=== PATIENT | male | born 1975 | race Caucasian/White ===

== ENCOUNTER → 2016-07-21 | Outpatient (CLI) | payer MEDICARE, MEDICAID, OTHER ==
--- NOTE | 2016-07-22 19:34 | US ---
EXAM DATE: 07/21/16 PATIENT'S AGE: 41 Patient: BUTCH MILES Facility: [place], [place] Site . Site : 1975 Study: US Abdomen [id number]/11/2017 4:35:35 PM Ordering Physician: Daly Delgadillo Final Report: HISTORY: 41-year-old with right upper quadrant pain. TECHNIQUE: Grayscale ultrasound examination of the abdomen and retroperitoneum was performed. COMPARISON: None available. FINDINGS: The liver is normal in size, however demonstrates abnormally increased echogenicity with decreased through transmission, consistent with diffuse fatty infiltration. No mass. There is a significantly distention, and the common bile duct measures up to 3 mm. There is no ascites. The gallbladder is fluid-filled with no evidence of stones or wall thickening. The right kidney is normal in size and echogenicity measuring up to 10.5 cm. There is no sonographic evidence for hydronephrosis, mass, or stone. IMPRESSION: 1. Liver parenchyma demonstrates abnormally increased echogenicity, consistent with diffuse fatty infiltration. 2. No sonographic evidence for cholelithiasis or acute cholecystitis. Dictated by Jean Carlos Brenner MD @ Jul 22 2016 8:53AM (Electronic Signature) Report Signed by Proxy. STEPH
== END ==
LOC: MW.US 15:56
PROVIDERS: ATTEND Nurse Practitioner
DX: R10.11 Right upper quadrant pain (principal); K76.89 Other specified diseases of liver
CPT/HCPCS: 76705; 76705-26

== ENCOUNTER 2016-12-27 12:05 | Emergency (ER) | payer MEDICARE, MEDICAID, OTHER ==
--- NOTE | 2016-12-27 12:26 | EDM.PDOC ---
ED HPI GENERAL MEDICAL PROBLEM - General Chief Complaint: Respiratory Problem Stated Complaint: COUGHING UP BLOOD Time Seen by Provider: 12/27/16 12:21 Source of Information: Reports: Patient History Limitations: Reports: No Limitations - History of Present Illness INITIAL COMMENTS - FREE TEXT/NARRATIVE: HISTORY AND PHYSICAL: History of present illness: Patient is a 41-year-old male who presents to the emergency room with complaints of nonproductive spontaneous cough she has noticed blood streaked sputum. Patient denies any chest pain, shortness of breath, near syncope, abdominal pain , nausea, vomiting or diarrhea. Denies any fever or chills. Denies any recent travel. Patient is a daily smoker for the past 20 years, 1/2 pack/day. Review of systems: As per history of present illness and below otherwise all systems reviewed and negative. Past medical history: As per history of present illness and as reviewed below otherwise noncontributory. Surgical history: As per history of present illness and as reviewed below otherwise noncontributory. Social history: No reported history of drug or alcohol abuse. Family history: As per history of present illness and as reviewed below otherwise noncontributory. Physical exam: General: Well-developed and well-nourished 41-year-old male. Able to speak in full sentences without shortness of breath. Alert and oriented. HEENT: Atraumatic, normocephalic, pupils reactive, negative for conjunctival pallor or scleral icterus, mucous membranes moist, throat clear, neck supple, nontender, trachea midline. Lymphadenopathy. Lungs: Clear to auscultation, breath sounds equal bilaterally, chest nontender. No cough noted at this time. Heart: S1S2, regular rate and rhythm Abdomen: Soft, nondistended, nontender. Negative for masses or hepatosplenomegaly. Negative for costovertebral tenderness. Pelvis: Stable nontender. Genitourinary: Deferred. Rectal: Deferred. Extremities: Atraumatic, negative for cords or calf pain. Neurovascular unremarkable. Neuro: Awake, alert, oriented. Cranial nerves II through XII unremarkable. Cerebellum unremarkable. Motor and sensory unremarkable throughout. Exam nonfocal. Chest x-ray does not show any sign of a pneumonia, infiltrates or any acute changes. Due to patient's history of smoking and current complaints and will treat him for bronchitis. Azithromycin 5 days, Medrol Dosepak, and pro-air inhaler. Educated patient to continue to monitor his symptoms. I would like him to follow-up with primary care provider in the next 1-2 days. Patient voices understanding of plan of care and denies any further questions at this time. Diagnostics: 2 view chest x-ray Therapeutics: Unique Impression: Acute bronchitis Plan: 1. Please take your medications as prescribed. You were given a prescription for azithromycin which is an antibiotic. Medrol Dosepak which is a steroid to help with inflammation. And a pro-air inhaler that will help open up the airway as well. 2. Please quit smoking as this can attribute to your symptoms. 3. Follow-up with your primary care provider in the next 1-2 days. Return to the ED as needed and as discussed. Definitive disposition and diagnosis as appropriate pending reevaluation and review of above. - Related Data Allergies Allergy/AdvReac Type Severity Reaction Status Date / Time No Known Allergies Allergy Verified 12/27/16 12:20 Home Meds: Home Meds Aspirin 81 mg PO BEDTIME 02/15/15 [History] Citalopram [Celexa] 10 mg PO DAILY 02/15/15 [History] Clopidogrel [Plavix] 75 mg PO DAILY 02/15/15 [History] Levothyroxine [Synthroid] 50 mcg PO DAILY 02/15/15 [History] Lisinopril 10 mg PO DAILY 02/15/15 [History] Metoprolol Succinate [Toprol XL] 50 mg PO DAILY 02/15/15 [History] Paliperidone Palmitate [Invega Sustenna] 156 mg IM WEEKLY 02/15/15 [History] QUEtiapine Fumarate [Quetiapine Fumarate] 600 mg PO BEDTIME 02/15/15 [History] atorvaSTATin [Lipitor] 40 mg PO BEDTIME 02/15/15 [History] cloNIDine [Catapres] 0.1 mg PO BEDTIME 02/15/15 [History] Past Medical History Other Cardiovascular History: states pm is for irregualr hr, but could possibly be from a heart attack. Other Musculoskeletal History: skull fracture - Past Surgical History Other Cardiovascular Surgeries/Procedures: pacemaker Other Musculoskeletal Surgeries/Procedures:: titanium plates in head Social & Family History - Tobacco Use Smoking Status *Q: Current Every Day Smoker Years of Tobacco use: 20 Packs/Tins Daily: 1 - Recreational Drug Use Recreational Drug Use: Yes Drug Use in Last 12 Months: No Recreational Drug Type: Reports: Marijuana/Hashish Recreational Drug Use Frequency: Weekly ED ROS GENERAL - Review of Systems Review Of Systems: ROS reveals no pertinent complaints other than HPI. Constitutional: Denies: Fever, Chills, Fatigue Respiratory: Reports: Cough. Denies: Shortness of Breath, Wheezing, Pleuritic Chest Pain Cardiovascular: Denies: Chest Pain, Dyspnea on Exertion, Palpitations Endocrine: Denies: Fatigue GI/Abdominal: Denies: Abdominal Pain, Difficulty Swallowing Skin: Denies: Cyanosis, Diaphoresis Neurological: Denies: Confusion ED EXAM, GENERAL - Physical Exam Exam: See Below (See dictation) Course - Vital Signs Last Recorded V/S: Last Vital Signs Temp 36.3 C 12/27/16 12:22 Pulse 84 12/27/16 12:22 Resp 18 12/27/16 12:22 BP 114/76 12/27/16 12:22 Pulse Ox 93 L 12/27/16 12:22 - Orders/Labs/Meds Orders: Active Orders 24 hr Category Date Time Status RT Aerosol Therapy [RC] ASDIRECTED Care 12/27/16 12:50 Active Meds: Medications Discontinued Medications Generic Name Dose Route Start Last Admin Trade Name Freq PRN Reason Stop Dose Admin Albuterol/Ipratropium 3 ml 12/27/16 12:50 12/27/16 13:04 Duoneb 3.0-0.5 Mg/3 Ml NEB 12/27/16 12:51 3 ml ONETIME ONE Administration Departure - Departure Time of Disposition: 13:30 Disposition: Home, Self-Care 01 Clinical Impression: Bronchitis - Discharge Information Instructions: Acute Bronchitis, [id number] Referrals: Daja He DO [Primary Care Provider] - Forms: ED Department Discharge Additional Instructions: My general discharge The following information is given to patients seen in the emergency department who are being discharged to home. This information is to outline your options for follow-up care. We provide all patients seen in our emergency department with a follow-up referral. The need for follow-up, as well as the timing and circumstances, are variable depending upon the specifics of your emergency department visit. If you don't have a primary care physician on staff, we will provide you with a referral. We always advise you to contact your personal physician following an emergency department visit to inform them of the circumstance of the visit and for follow-up with them and/or the need for any referrals to a consulting specialist. The emergency department will also refer you to a specialist when appropriate. This referral assures that you have the opportunity for follow-up care with a specialist. All of these measure are taken in an effort to provide you with optimal care, which includes your follow-up. Under all circumstances we always encourage you to contact your private physician who remains a resource for coordinating your care. When calling for follow-up care, please make the office aware that this follow-up is from your recent emergency room visit. If for any reason you are refused follow-up, please contact the [facility] Emergency Department at and asked to speak to the emergency department charge nurse. [facility] [address] [place] [id number] 1. Please take your medications as prescribed. You were given a prescription for azithromycin which is an antibiotic. Medrol Dosepak which is a steroid to help with inflammation. And a pro-air inhaler that will help open up the airway as well. 2. Please quit smoking as this can attribute to your symptoms. 3. Follow-up with your primary care provider in the next 1-2 days. Return to the ED as needed and as discussed. - My Orders Last 24 Hours: My Active Orders 12/27/16 12:50 RT Aerosol Therapy [RC] ASDIRECTED - Assessment/Plan Last 24 Hours: My Active Orders 12/27/16 12:50 RT Aerosol Therapy [RC] ASDIRECTED
[2016-12-27] MEDS ORDERED: Albuterol/Ipratropium 3.0-0.5 MG/3 ML Neb Soln NEB ONE (12:50)
--- NOTE | 2016-12-27 13:46 | CR ---
EXAMINATION: Two-view chest (PA and Lateral views). HISTORY: Shortness of breath. FINDINGS: The trachea is midline. The cardiomediastinal silhouette is within normal limits. No pulmonary infilt rates, effusions or pneumothorax. There is a left-sided AICD. Osseous structures appear unremarkable. IMPRESSION: No acute cardiopulmonary process.
[2016-12-27 14:08] VITALS: BP 119/80
== END 2016-12-27 14:07 | disposition home or self-care (01) ==
LOC: MW.ED 12:05
DX: J20.9 Acute bronchitis, unspecified (principal); F17.210 Nicotine dependence, cigarettes, uncomplicated; Z95.0 Presence of cardiac pacemaker; Z79.82 Long term (current) use of aspirin; Z79.02 Long term (current) use of antithrombotics/antiplatelets; Z79.899 Other long term (current) drug therapy
CPT/HCPCS: 71020; 71020-26; 94640; 99282; 99284-25

== ENCOUNTER 2017-02-27 19:51 | Emergency (ER) | payer MEDICARE, MEDICAID, OTHER ==
--- NOTE | 2017-02-27 20:43 | EDM.PDOC ---
ED HPI GENERAL MEDICAL PROBLEM - General Chief Complaint: Head Injury Stated Complaint: SMASHED RT SIDE HEAD/FACE Time Seen by Provider: 02/27/17 20:40 - History of Present Illness INITIAL COMMENTS - FREE TEXT/NARRATIVE: HISTORY AND PHYSICAL: History of present illness: Patient's 39 through male presents with sort of minor head injury in which he was lifting a sofa line hit his right head patient has concern about right- sided head pain since his injury which occurred several days prior he is on aspirin Plavix for his cardiac disease inclusive of pacemaker he denies other trauma or concerns been no nausea no vomiting no visual disturbance no other neurological signs or symptoms Review of systems: As per history of present illness and below otherwise all systems reviewed and negative. Past medical history: As per history of present illness and as reviewed below otherwise noncontributory. Surgical history: As per history of present illness and as reviewed below otherwise noncontributory. Social history: No reported history of drug or alcohol abuse. Family history: As per history of present illness and as reviewed below otherwise noncontributory. Physical exam: HEENT: Atraumatic, normocephalic, pupils reactive, negative for conjunctival pallor or scleral icterus, mucous membranes moist, throat clear, neck supple, nontender, trachea midline. Lungs: Clear to auscultation, breath sounds equal bilaterally, chest nontender. Heart: S1S2, regular, negative for clicks, rubs, or JVD. Abdomen: Soft, nondistended, nontender. Negative for masses or hepatosplenomegaly. Negative for costovertebral tenderness. Pelvis: Stable nontender. Genitourinary: Deferred. Rectal: Deferred. Extremities: Atraumatic, negative for cords or calf pain. Neurovascular unremarkable. Neuro: Awake, alert, oriented. Cranial nerves II through XII unremarkable. Cerebellum unremarkable. Motor and sensory unremarkable throughout. Exam nonfocal. Diagnostics: CT brain Therapeutics: None Impression: #1 head injury Definitive disposition and diagnosis as appropriate pending reevaluation and review of above. head Pain Score (Numeric/FACES): 8 - Related Data Allergies Allergy/AdvReac Type Severity Reaction Status Date / Time No Known Allergies Allergy Verified 02/27/17 20:11 Home Meds: Home Meds Aspirin 81 mg PO BEDTIME 02/15/15 [History] Citalopram [Celexa] 10 mg PO DAILY 02/15/15 [History] Clopidogrel [Plavix] 75 mg PO DAILY 02/15/15 [History] Levothyroxine [Synthroid] 50 mcg PO DAILY 02/15/15 [History] Lisinopril 10 mg PO DAILY 02/15/15 [History] Metoprolol Succinate [Toprol XL] 50 mg PO DAILY 02/15/15 [History] Paliperidone Palmitate [Invega Sustenna] 156 mg IM WEEKLY 02/15/15 [History] QUEtiapine Fumarate [Quetiapine Fumarate] 800 mg PO BEDTIME 02/15/15 [History] atorvaSTATin [Lipitor] 40 mg PO BEDTIME 02/15/15 [History] cloNIDine [Catapres] 0.1 mg PO BEDTIME 02/15/15 [History] Past Medical History - Past Health History Medical/Surgical History: Denies Medical/Surgical History HEENT History: Reports: None Cardiovascular History: Reports: Hypertension, Pacemaker Other Cardiovascular History: states pm is for irregualr hr, but could possibly be from a heart attack. Respiratory History: Reports: None Gastrointestinal History: Reports: None Genitourinary History: Reports: None Other Musculoskeletal History: skull fracture Neurological History: Reports: None Psychiatric History: Reports: Anxiety Endocrine/Metabolic History: Reports: Hypothyroidism Hematologic History: Reports: None Immunologic History: Reports: None Oncologic (Cancer) History: Reports: None Dermatologic History: Reports: None - Past Surgical History HEENT Surgical History: Reports: None Other Cardiovascular Surgeries/Procedures: pacemaker Respiratory Surgical History: Reports: None GI Surgical History: Reports: None Male Surgical History: Reports: None Endocrine Surgical History: Reports: None Neurological Surgical History: Reports: None Other Musculoskeletal Surgeries/Procedures:: titanium plates in head Dermatological Surgical History: Reports: None Social & Family History - Family History Family Medical History: Noncontributory - Tobacco Use Smoking Status *Q: Current Every Day Smoker Years of Tobacco use: 20 Packs/Tins Daily: 1 - Caffeine Use Caffeine Use: Reports: Coffee Caffeine Use Comment: daily 1 cup - Recreational Drug Use Recreational Drug Use: Yes Drug Use in Last 12 Months: Yes Recreational Drug Type: Reports: Marijuana/Hashish Recreational Drug Use Frequency: Weekly ED ROS GENERAL - Review of Systems Review Of Systems: ROS reveals no pertinent complaints other than HPI. ED EXAM, HEAD INJURY - Physical Exam Exam: See Below (See dictation) Course - Vital Signs Last Recorded V/S: Last Vital Signs Temp 36.8 C 02/27/17 19:51 Pulse 72 02/27/17 19:51 Resp 18 02/27/17 19:51 BP 122/84 02/27/17 19:51 Pulse Ox 94 L 02/27/17 19:51 Departure - Departure Time of Disposition: 20:42 Disposition: Home, Self-Care 01 Condition: Good Clinical Impression: Head injury - Discharge Information Referrals: Daja He DO [Primary Care Provider] - Additional Instructions: The following information is given to patients seen in the emergency department who are being discharged to home. This information is to outline your options for follow-up care. We provide all patients seen in our emergency department with a follow-up referral. The need for follow-up, as well as the timing and circumstances, are variable depending upon the specifics of your emergency department visit. If you don't have a primary care physician on staff, we will provide you with a referral. We always advise you to contact your personal physician following an emergency department visit to inform them of the circumstance of the visit and for follow-up with them and/or the need for any referrals to a consulting specialist. The emergency department will also refer you to a specialist when appropriate. This referral assures that you have the opportunity for followup care with a specialist. All of these measure are taken in an effort to provide you with optimal care, which includes your followup. Under all circumstances we always encourage you to contact your private physician who remains a resource for coordinating your care. When calling for followup care, please make the office aware that this follow-up is from your recent emergency room visit. If for any reason you are refused follow-up, please contact the [facility] emergency department at and asked to speak to the emergency department charge nurse. Continue current medications follow-up private medical doctor 1 today's return as needed as discussed
[2017-02-27 22:37] VITALS: BP 123/89
--- NOTE | 2017-02-28 15:42 | CT ---
EXAM DATE: 02/27/17 PATIENT'S AGE: 42 Patient: BUTCH MILES Facility: [place], [place] Site . Site : 1975 Study: CT Head WO CONT [id number]/18/2017 9:12:47 PM Ordering Physician: Jennie Harrison Final Report: INDICATION: Trauma. TECHNIQUE: Noncontrast CT of the brain was performed with images acquired from skull base to vertex. COMPARISON: None available. FINDINGS: There is no acute intracranial hemorrhage. Ventricles are of normal size and morphology. No mass effect or midline shift is present. The alfonso-white matter differentiation is normal. The visualized portions of the orbits are normal. The visualized portions of the mastoids are normal. The visualized portions of the paranasal sinuses are normal. No fractures are identified. There is atherosclerotic calcification in both carotid siphons. IMPRESSION: No acute intracranial abnormality Please note that all CT scans at this facility use dose modulation, iterative reconstruction, and/or weight-based dosing when appropriate to reduce radiation dose to as low as reasonably achievable. Dictated by Hany Gifford MD @ Feb 27 2017 9:40PM (Electronic Signature) Report Signed by Proxy. STEPH
== END 2017-02-27 22:32 | disposition home or self-care (01) ==
LOC: MW.ED 19:51
DX: S09.90XA Unspecified injury of head, initial encounter (principal); I10 Essential (primary) hypertension; F17.210 Nicotine dependence, cigarettes, uncomplicated; Z79.82 Long term (current) use of aspirin; Z79.899 Other long term (current) drug therapy; W22.8XXA Striking against or struck by other objects, initial encounter
CPT/HCPCS: 70450; 70450-26; 99283; 99283-25

== ENCOUNTER 2017-11-29 22:52 | Emergency (ER) | payer MEDICARE, MEDICAID ==
[2017-11-29] MEDS ORDERED: Sodium Chloride 0.9% 10 ML Syringe FLUSH PRN (23:16)
[2017-11-29] MEDS ORDERED: Sodium Chloride 0.9% 2.5 ML Syringe FLUSH PRN (23:16)
[2017-11-29] MEDS ORDERED: Sodium Chloride 0.9% 1,000 ML IV ONE (23:16)
[2017-11-29] MEDS ORDERED: Ketorolac 30 MG/ML SDV IVPUSH ONE (23:16)
--- NOTE | 2017-11-29 23:21 | EDM.PDOC ---
ED HPI GENERAL MEDICAL PROBLEM - General Chief Complaint: Abdominal Pain Stated Complaint: PT HAS STOMACH PAINS Time Seen by Provider: 11/29/17 23:04 - History of Present Illness INITIAL COMMENTS - FREE TEXT/NARRATIVE: HISTORY AND PHYSICAL: History of present illness: The patient is a 42-year-old male with no GI history or abdominal surgical history and presents with sudden onset of right middle abdominal pain that started about 30 minutes ago while he was getting ready for bed. The patient has a history of hypertension hypothyroidism and hypercholesterolemia and says that he has never had any GI problems. He thinks he may have had trouble with his gallbladder in the past but he cannot really relate much information about that. He denies any recent history of upper respiratory infections cough chest pain or shortness of breath and has no fevers chills or flank pain. He says the pain is deep on the right side and feels like a stabbing sensation and he did not take any medications prior to coming here. He's had no nausea or vomiting and his last bowel movement was yesterday and it was normal without black or bloody stools and not diarrhea. The patient admits that he drinks a lot of caffeinated products and does not eat a healthy diet and ate normal food this evening for dinner, pop tarts crackers, and does not have any history of using [id number] Tums or Mylanta or other GI meds. He denies any hematuria or dysuria and the pain does not migrate but sits in one location. It is not worse with position. Review of systems: As per history of present illness and below otherwise all systems reviewed and negative. Past medical history: As per history of present illness and as reviewed below otherwise noncontributory. Surgical history: As per history of present illness and as reviewed below otherwise noncontributory. Social history: No reported history of drug or alcohol abuse. Family history: As per history of present illness and as reviewed below otherwise noncontributory. Physical exam: General: Well-developed well-nourished overweight man who is nontoxic and in related to the ED without distress. Vital signs are noted by me HEENT: Atraumatic, normocephalic, negative for conjunctival pallor or scleral icterus, mucous membranes moist, throat clear, neck supple, nontender, trachea midline. Lungs: Clear to auscultation, breath sounds equal bilaterally, chest nontender. Heart: S1S2, regular rate and rhythm no overt murmurs Abdomen: Soft, nondistended, bowel sounds are slightly hypoactive and there is tympany on percussion of the upper abdomen. On deep palpation on the right side I am unable to elicit the pain and the patient does not look uncomfortable. There is no rebound or guarding with my exam. Negative for masses or hepatosplenomegaly. Negative for costovertebral tenderness. Pelvis: Stable nontender. Genitourinary: Deferred. Rectal: Deferred. Extremities: Atraumatic, negative for cords or calf pain. Neurovascular unremarkable. Neuro: Awake, alert, oriented. Cranial nerves II through XII unremarkable. Cerebellum unremarkable. Motor and sensory unremarkable throughout. Exam nonfocal. Diagnostics: CBC CMP amylase lipase H pylori UA CT scan of the abdomen and pelvis Therapeutics: IV fluids Toradol The patient is aware of all testing results including the CAT scan showing colonic fecal retention and normal labs. I will give him some Bentyl via [employer] Meds and have recommended increasing fiber in his diet pushing hydration avoiding caffeinated products and using [id number] MiraLAX. Impression: Right-sided abdominal pain, colonic fecal retention Definitive disposition and diagnosis as appropriate pending reevaluation and review of above. abdomen Pain Score (Numeric/FACES): 1 - Related Data Allergies Allergy/AdvReac Type Severity Reaction Status Date / Time No Known Allergies Allergy Verified 11/29/17 22:59 Home Meds: Home Meds Aspirin 81 mg PO BEDTIME 02/15/15 [History] Citalopram [Celexa] 10 mg PO DAILY 02/15/15 [History] Clopidogrel [Plavix] 75 mg PO DAILY 02/15/15 [History] Levothyroxine [Synthroid] 50 mcg PO DAILY 02/15/15 [History] Lisinopril 10 mg PO DAILY 02/15/15 [History] Metoprolol Succinate [Toprol XL] 50 mg PO DAILY 02/15/15 [History] Paliperidone Palmitate [Invega Sustenna] 156 mg IM WEEKLY 02/15/15 [History] QUEtiapine Fumarate [Quetiapine Fumarate] 800 mg PO BEDTIME 02/15/15 [History] atorvaSTATin [Lipitor] 40 mg PO BEDTIME 02/15/15 [History] cloNIDine [Catapres] 0.1 mg PO BEDTIME 02/15/15 [History] Past Medical History - Past Health History Medical/Surgical History: Denies Medical/Surgical History HEENT History: Reports: None Cardiovascular History: Reports: Hypertension, Pacemaker Other Cardiovascular History: states pm is for irregualr hr, but could possibly be from a heart attack. Respiratory History: Reports: None Gastrointestinal History: Reports: None Genitourinary History: Reports: None Other Musculoskeletal History: skull fracture Neurological History: Reports: None Psychiatric History: Reports: Anxiety Endocrine/Metabolic History: Reports: Hypothyroidism Hematologic History: Reports: None Immunologic History: Reports: None Oncologic (Cancer) History: Reports: None Dermatologic History: Reports: None - Past Surgical History HEENT Surgical History: Reports: None Other Cardiovascular Surgeries/Procedures: pacemaker Respiratory Surgical History: Reports: None GI Surgical History: Reports: None Male Surgical History: Reports: None Endocrine Surgical History: Reports: None Other Neurological Surgeries/Procedures: head surgery Other Musculoskeletal Surgeries/Procedures:: titanium plates in head Dermatological Surgical History: Reports: None Social & Family History - Family History Family Medical History: Noncontributory - Tobacco Use Smoking Status *Q: Current Every Day Smoker Years of Tobacco use: 20 Packs/Tins Daily: 1 - Caffeine Use Caffeine Use: Reports: Coffee Caffeine Use Comment: daily 1 cup - Recreational Drug Use Recreational Drug Use: Yes Drug Use in Last 12 Months: Yes Recreational Drug Type: Reports: Marijuana/Hashish Recreational Drug Use Frequency: Socially ED ROS GENERAL - Review of Systems Review Of Systems: ROS reveals no pertinent complaints other than HPI. ED EXAM, GENERAL - Physical Exam Exam: See Below (See dictation) Course - Vital Signs Last Recorded V/S: Last Vital Signs Temp 36.4 C 11/29/17 22:52 Pulse 103 H 11/29/17 22:52 Resp 18 11/29/17 22:52 BP 124/84 11/29/17 22:52 Pulse Ox 94 L 11/29/17 22:52 - Orders/Labs/Meds Orders: Active Orders 24 hr Category Date Time Status Abdomen Pelvis w Cont [CT] Stat Exams 11/29/17 23:16 Taken Sodium Chloride 0.9% [Saline Flush] Med 11/29/17 23:16 Active 10 ml FLUSH ASDIRECTED PRN Sodium Chloride 0.9% [Saline Flush] Med 11/29/17 23:16 Active 2.5 ml FLUSH ASDIRECTED PRN Saline Lock Insert [OM.PC] Stat Oth 11/29/17 23:15 Ordered Medication Orders Sodium Chloride (Saline Flush) 10 ml FLUSH ASDIRECTED PRN PRN Reason: Keep Vein Open Sodium Chloride (Saline Flush) 2.5 ml FLUSH ASDIRECTED PRN PRN Reason: Keep Vein Open Labs: Laboratory Tests 11/29/17 11/29/17 11/29/17 Range/Units 23:25 23:25 23:25 WBC 7.53 (4.0-11.0) K/uL RBC 5.11 (4.50-5.90) M/uL Hgb 16.1 (13.0-17.0) g/dL Hct 45.0 (38.0-50.0) % MCV 88.1 (80.0-98.0) fL MCH 31.5 (27.0-32.0) pg MCHC 35.8 (31.0-37.0) g/dL RDW Std Deviation 41.7 (28.0-62.0) fl RDW Coeff of Sigifredo 13 (11.0-15.0) % Plt Count 176 (150-400) K/uL MPV 9.20 (7.40-12.00) fL Neut % (Auto) 57.7 (48.0-80.0) % Lymph % (Auto) 29.2 (16.0-40.0) % Sullivan % (Auto) 7.0 (0.0-15.0) % Eos % (Auto) 5.7 (0.0-7.0) % Baso % (Auto) 0.4 (0.0-1.5) % Neut # (Auto) 4.3 (1.4-5.7) K/uL Lymph # (Auto) 2.2 (0.6-2.4) K/uL Sullivan # (Auto) 0.5 (0.0-0.8) K/uL Eos # (Auto) 0.4 (0.0-0.7) K/uL Baso # (Auto) 0.0 (0.0-0.1) K/uL Nucleated RBC % 0.0 /100WBC Nucleated RBCs # 0 K/uL Sodium 139 (136-148) mmol/L Potassium 3.7 (3.5-5.1) mmol/L Chloride 104 (98-107) mmol/L Carbon Dioxide 25.1 (21.0-32.0) mmol/L BUN 8 (7.0-18.0) mg/dL Creatinine 1.0 (0.8-1.3) mg/dL Est Cr Clr Drug Dosing 98.35 mL/min Estimated GFR (MDRD) > 60.0 ml/min Glucose 146 H (74-106) mg/dL Calcium 8.8 (8.5-10.1) mg/dL Total Bilirubin 0.5 (0.2-1.0) mg/dL AST 22 (15-37) IU/L ALT 33 (14-63) IU/L Alkaline Phosphatase 65 (46-116) U/L Total Protein 7.1 (6.4-8.2) g/dL Albumin 3.8 (3.4-5.0) g/dL Globulin 3.3 (2.0-3.5) g/dL Albumin/Globulin Ratio 1.2 L (1.3-2.8) Amylase 40 (25-115) U/L Lipase 196 (73-393) U/L Urine Color Urine Appearance Urine pH (5.0-8.0) Ur Specific Bethany (1.001-1.035) Urine Protein (NEGATIVE) mg/dL Urine Glucose (UA) (NEGATIVE) mg/dL Urine Ketones (NEGATIVE) mg/dL Urine Occult Blood (NEGATIVE) Urine Nitrite (NEGATIVE) Urine Bilirubin (NEGATIVE) Urine Urobilinogen (<2.0) EU/dL Ur Leukocyte Esterase (NEGATIVE) Urine RBC (0-2/HPF) Urine WBC (0-5/HPF) Ur Epithelial Cells (NONE-FEW) Urine Bacteria (NEGATIVE) H. pylori IgG Antibody NEGATIVE (NEG) 11/30/17 Range/Units 00:25 WBC (4.0-11.0) K/uL RBC (4.50-5.90) M/uL Hgb (13.0-17.0) g/dL Hct (38.0-50.0) % MCV (80.0-98.0) fL MCH (27.0-32.0) pg MCHC (31.0-37.0) g/dL RDW Std Deviation (28.0-62.0) fl RDW Coeff of Sigifredo (11.0-15.0) % Plt Count (150-400) K/uL MPV (7.40-12.00) fL Neut % (Auto) (48.0-80.0) % Lymph % (Auto) (16.0-40.0) % Sullivan % (Auto) (0.0-15.0) % Eos % (Auto) (0.0-7.0) % Baso % (Auto) (0.0-1.5) % Neut # (Auto) (1.4-5.7) K/uL Lymph # (Auto) (0.6-2.4) K/uL Sullivan # (Auto) (0.0-0.8) K/uL Eos # (Auto) (0.0-0.7) K/uL Baso # (Auto) (0.0-0.1) K/uL Nucleated RBC % /100WBC Nucleated RBCs # K/uL Sodium (136-148) mmol/L Potassium (3.5-5.1) mmol/L Chloride (98-107) mmol/L Carbon Dioxide (21.0-32.0) mmol/L BUN (7.0-18.0) mg/dL Creatinine (0.8-1.3) mg/dL Est Cr Clr Drug Dosing mL/min Estimated GFR (MDRD) ml/min Glucose (74-106) mg/dL Calcium (8.5-10.1) mg/dL Total Bilirubin (0.2-1.0) mg/dL AST (15-37) IU/L ALT (14-63) IU/L Alkaline Phosphatase (46-116) U/L Total Protein (6.4-8.2) g/dL Albumin (3.4-5.0) g/dL Globulin (2.0-3.5) g/dL Albumin/Globulin Ratio (1.3-2.8) Amylase (25-115) U/L Lipase (73-393) U/L Urine Color YELLOW Urine Appearance CLEAR Urine pH 6.5 (5.0-8.0) Ur Specific Bethany 1.015 (1.001-1.035) Urine Protein NEGATIVE (NEGATIVE) mg/dL Urine Glucose (UA) NEGATIVE (NEGATIVE) mg/dL Urine Ketones NEGATIVE (NEGATIVE) mg/dL Urine Occult Blood NEGATIVE (NEGATIVE) Urine Nitrite NEGATIVE (NEGATIVE) Urine Bilirubin NEGATIVE (NEGATIVE) Urine Urobilinogen 0.2 (<2.0) EU/dL Ur Leukocyte Esterase NEGATIVE (NEGATIVE) Urine RBC 0-1 (0-2/HPF) Urine WBC 0-1 (0-5/HPF) Ur Epithelial Cells RARE (NONE-FEW) Urine Bacteria RARE (NEGATIVE) H. pylori IgG Antibody (NEG) Meds: Medications Generic Name Dose Route Start Last Admin Trade Name Freq PRN Reason Stop Dose Admin Sodium Chloride 10 ml 11/29/17 23:16 Saline Flush FLUSH ASDIRECTED PRN Keep Vein Open Sodium Chloride 2.5 ml 11/29/17 23:16 Saline Flush FLUSH ASDIRECTED PRN Keep Vein Open Discontinued Medications Generic Name Dose Route Start Last Admin Trade Name Freq PRN Reason Stop Dose Admin Sodium Chloride 1,000 mls @ 999 mls/hr 11/29/17 23:16 11/29/17 23:41 Normal Saline IV 11/30/17 00:16 999 mls/hr STAT ONE Administration Iopamidol 100 ml 11/30/17 00:25 11/30/17 00:26 Isovue-370 (76%) IVPUSH 11/30/17 00:26 100 ml ONETIME ONE Administration Ketorolac Tromethamine 30 mg 11/29/17 23:16 11/29/17 23:41 Toradol IVPUSH 11/29/17 23:17 30 mg ONETIME ONE Administration Departure - Departure Time of Disposition: 00:59 Disposition: Home, Self-Care 01 Condition: Good Clinical Impression: Abdominal pain Qualifiers: Abdominal location: unspecified location Qualified Code(s): R10.9 - Unspecified abdominal pain - Discharge Information Referrals: PCP,None [Primary Care Provider] - Forms: ED Department Discharge Additional Instructions: The following information is given to patients seen in the emergency department who are being discharged to home. This information is to outline your options for follow-up care. We provide all patients seen in our emergency department with a follow-up referral. The need for follow-up, as well as the timing and circumstances, are variable depending upon the specifics of your emergency department visit. If you don't have a primary care physician on staff, we will provide you with a referral. We always advise you to contact your personal physician following an emergency department visit to inform them of the circumstance of the visit and for follow-up with them and/or the need for any referrals to a consulting specialist. The emergency department will also refer you to a specialist when appropriate. This referral assures that you have the opportunity for followup care with a specialist. All of these measure are taken in an effort to provide you with optimal care, which includes your followup. Under all circumstances we always encourage you to contact your private physician who remains a resource for coordinating your care. When calling for followup care, please make the office aware that this follow-up is from your recent emergency room visit. If for any reason you are refused follow-up, please contact the [facility] emergency department at and ask to speak to the emergency department charge nurse. [facility] Primary care- Internal Medicine and Family [address] [address] Please try to avoid caffeinated products and eat more healthy meals including increasing fiber in your diet with vegetables and whole gr. Push water juice and Gatorade. Please use the dicyclomine you have been given B Insty Meds for cramping pain and also use [id number] MiraLAX to help cleanse the bowel for the next couple of days. Call and schedule a follow-up appointment with your provider or one of ours in the clinic for reevaluation further care and return to ER as needed and as discussed - My Orders Last 24 Hours: My Active Orders 11/29/17 23:15 Saline Lock Insert [OM.PC] Stat 11/29/17 23:16 Abdomen Pelvis w Cont [CT] Stat Sodium Chloride 0.9% [Saline Flush] 10 ml FLUSH ASDIRECTED PRN Sodium Chloride 0.9% [Saline Flush] 2.5 ml FLUSH ASDIRECTED PRN - Assessment/Plan Last 24 Hours: My Active Orders 11/29/17 23:15 Saline Lock Insert [OM.PC] Stat 11/29/17 23:16 Abdomen Pelvis w Cont [CT] Stat Sodium Chloride 0.9% [Saline Flush] 10 ml FLUSH ASDIRECTED PRN Sodium Chloride 0.9% [Saline Flush] 2.5 ml FLUSH ASDIRECTED PRN
[2017-11-29 23:56] LABS: CHLORIDE,CL 104 mmol/L (98-107); SODIUM,NA 139 mmol/L (136-148)
[2017-11-30] MEDS ORDERED: Iopamidol 755 Mg/ML 100 ML Bottle IVPUSH ONE (00:25)
[2017-11-30 01:13] VITALS: BP 110/80
--- NOTE | 2017-11-30 11:03 | CT ---
EXAM DATE: 11/29/17 PATIENT'S AGE: 42 Patient: BUTCH MILES Facility: [place], [place] Site . Site : 1975 Study: CT Abdomen/Pelvis [id number]/20/2018 12:32:58 AM Ordering Physician: Doctor Bull Final Report: INDICATION: Abdominal pain TECHNIQUE: CT abdomen and pelvis acquired with IV contrast. 100 cc Isovue 370 COMPARISON: None FINDINGS: Lower chest: Unremarkable. Liver: Unremarkable. Spleen: Unremarkable. Pancreas: Unremarkable. Gallbladder and bile ducts: Unremarkable. Kidneys: Unremarkable. Adrenal glands: Unremarkable. GI tract: Colonic fecal retention. Appendix is normal. Vascular structures: Unremarkable. Lymph nodes: Unremarkable. Miscellaneous: Unremarkable. No free air or significant free fluid. Pelvic Organs: Unremarkable. Bones: Bilateral L5 pars defects with grade 1 anterolisthesis L5 over S1. IMPRESSION: Colonic fecal retention otherwise no findings to explain the patient`s abdominal pain. Bilateral L5 pars defects with grade 1 anterolisthesis L5 over S1. Dictated by Veto Harris MD @ 11/30/2017 12:56:56 AM Dictated by: Veto Harris MD @ 11/30/2017 00:57:09 (Electronic Signature) Report Signed by Proxy. STEPH
== END 2017-11-30 01:10 | disposition home or self-care (01) ==
LOC: MW.ED 22:52
DX: K59.00 Constipation, unspecified (principal); I10 Essential (primary) hypertension; E03.9 Hypothyroidism, unspecified; F17.210 Nicotine dependence, cigarettes, uncomplicated; Z95.0 Presence of cardiac pacemaker; Z79.82 Long term (current) use of aspirin; Z79.899 Other long term (current) drug therapy
CPT/HCPCS: 36415; 74177; 80053; 81001; 82150; 83690; 85025; 86677; 96361; 96374; 99284; J1885; J7040; Q9967

== ENCOUNTER 2018-03-22 02:43 | Emergency (ER) | payer MEDICARE, MEDICAID, OTHER ==
[2018-03-22] MEDS ORDERED: Sodium Chloride 0.9% 2.5 ML Syringe FLUSH PRN (02:50)
[2018-03-22] MEDS ORDERED: Sodium Chloride 0.9% 10 ML Syringe FLUSH PRN (02:50)
[2018-03-22] MEDS ORDERED: Sodium Chloride 0.9% 1,000 ML IV ONE (03:00)
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
[2018-03-22 03:29] LABS: CHLORIDE,CL 103 mmol/L (98-107); SODIUM,NA 140 mmol/L (136-148)
[2018-03-22 04:20] VITALS: BP 119/74
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
== END 2018-03-22 04:15 | disposition home or self-care (01) ==
LOC: MW.ED 02:43
DX: R10.10 Upper abdominal pain, unspecified (principal); R42 Dizziness and giddiness; I10 Essential (primary) hypertension; E03.9 Hypothyroidism, unspecified; F17.210 Nicotine dependence, cigarettes, uncomplicated; Z95.0 Presence of cardiac pacemaker; Z79.899 Other long term (current) drug therapy; Z79.82 Long term (current) use of aspirin
CPT/HCPCS: 36415; 74022; 80053; 81001; 82150; 83690; 84484; 85025; 93005; 96360; 99285; J7040

== ENCOUNTER 2019-02-06 09:48 | Emergency (ER) | payer MEDICAID, MEDICARE, OTHER ==
[2019-02-06 10:01] VITALS: BP 125/84
--- NOTE | 2019-02-06 10:20 | EDM.PDOC ---
ED HPI GENERAL MEDICAL PROBLEM - General Chief Complaint: General Stated Complaint: THROAT DISCOMFORT Time Seen by Provider: 02/06/19 09:53 Source of Information: Reports: Patient History Limitations: Reports: No Limitations - History of Present Illness INITIAL COMMENTS - FREE TEXT/NARRATIVE: HISTORY AND PHYSICAL: History of present illness: Patient is a 44-year-old male who presents to the ED today with concern of a month-long concern of having difficulty swallowing food. Patient states he is unsure if he got food stuck in his throat and that is what started the symptoms. Patient states he is able to eat and drink but if the food is more "dry" he has a harder time swallowing it but is still able to swallow. Patient denies any pain or discomfort of his throat. Patient denies any other symptoms or concerns. Patient denies fever, chills, chest pain, shortness of breath, or cough. Denies headache, neck stiff ness, change in vision, syncope, or near syncope. Denies nausea, vomiting, abdominal pain, diarrhea, constipation, or dysuria. Has not noted any blood in urine or stool. Patient has been eating and drinking appropriately. Review of systems: As per history of present illness and below otherwise all systems reviewed and negative. Past medical history: As per history of present illness and as reviewed below otherwise noncontributory. Surgical history: As per history of present illness and as reviewed below otherwise noncontributory. Social history: See social history for further information Family history: As per history of present illness and as reviewed below otherwise noncontributory. Physical exam: General: Patient is alert, oriented, and in no acute distress. Patient sitting comfortably on exam table. HEENT: Atraumatic, normocephalic, pupils equal and reactive bilaterally, negative for conjunctival pallor or scleral icterus, mucous membranes moist, TMs normal bilaterally, throat clear, neck supple, nontender, trachea midline. No drooling or trismus noted. No meningeal signs. No hot potato voice noted. Lungs: Clear to auscultation, breath sounds equal bilaterally, chest nontender. Heart: S1S2, regular rate and rhythm without overt murmur Abdomen: Soft, nondistended, nontender. Negative for masses or hepatosplenomegaly. Negative for costovertebral tenderness. Pelvis: Stable nontender. Genitourinary: Deferred. Rectal: Deferred. Skin: Intact, warm, dry. No lesions or rashes noted. Extremities: Atraumatic, negative for cords or calf pain. Neurovascular unremarkable. Neuro: Awake, alert, oriented. Cranial nerves II through XII unremarkable. Cerebellum unremarkable. Motor and sensory unremarkable throughout. Exam nonfocal. Notes: Dr. Schneider verbally involved in patient care. Discussed the importance for follow-up with the general surgery. Voices understanding and is agreeable to plan of care. Denies any further questions or concerns at this time. Diagnostics: Soft tissue neck XR, strep Therapeutics: None Prescription: None Impression: Dysphagia Plan: 1. You can alternate ibuprofen and Tylenol as directed for pain and discomfort. 2. Follow-up with the general surgeon as discussed. The number has been provided above for you to call and set up an appointment. 3. Return to the ED as needed and as discussed. Definitive disposition and diagnosis as appropriate pending reevaluation and review of above. - Related Data Allergies Allergy/AdvReac Type Severity Reaction Status Date / Time No Known Allergies Allergy Verified 02/06/19 10:01 Home Meds: Home Meds Aspirin 81 mg PO BEDTIME 02/15/15 [History] Citalopram [Celexa] 10 mg PO BEDTIME 02/15/15 [History] Clopidogrel [Plavix] 75 mg PO DAILY 02/15/15 [History] Levothyroxine [Synthroid] 50 mcg PO ACBREAKFAST 02/15/15 [History] Lisinopril 10 mg PO DAILY 02/15/15 [History] Metoprolol Succinate [Toprol XL] 50 mg PO DAILY 02/15/15 [History] Paliperidone Palmitate [Invega Sustenna] 156 mg IM ASDIRECTED 02/15/15 [History] QUEtiapine Fumarate [Quetiapine Fumarate] 800 mg PO BEDTIME 02/15/15 [History] atorvaSTATin [Lipitor] 40 mg PO BEDTIME 02/15/15 [History] cloNIDine [Catapres] 0.1 mg PO BEDTIME 02/15/15 [History] Baclofen 10 mg PO BEDTIME 02/06/19 [History] Past Medical History - Past Health History Medical/Surgical History: Denies Medical/Surgical History HEENT History: Reports: None Cardiovascular History: Reports: High Cholesterol, Hypertension, Pacemaker Other Cardiovascular History: states pm is for irregualr hr, but could possibly be from a heart attack. Respiratory History: Reports: None Gastrointestinal History: Reports: None Genitourinary History: Reports: None Musculoskeletal History: Reports: Other (See Below) Other Musculoskeletal History: skull fracture Neurological History: Reports: None Psychiatric History: Reports: Anxiety Endocrine/Metabolic History: Reports: Hypothyroidism Hematologic History: Reports: None Immunologic History: Reports: None Oncologic (Cancer) History: Reports: None Dermatologic History: Reports: None - Past Surgical History Head Surgeries/Procedures: Reports: None HEENT Surgical History: Reports: None Cardiovascular Surgical History: Reports: Other (See Below) Other Cardiovascular Surgeries/Procedures: pacemaker Respiratory Surgical History: Reports: None GI Surgical History: Reports: None Male Surgical History: Reports: None Endocrine Surgical History: Reports: None Neurological Surgical History: Reports: Other (See Below) Other Neurological Surgeries/Procedures: head surgery Musculoskeletal Surgical History: Reports: Other (See Below) Other Musculoskeletal Surgeries/Procedures:: titanium plates in head Oncologic Surgical History: Reports: None Dermatological Surgical History: Reports: None Social & Family History - Family History Family Medical History: Noncontributory - Tobacco Use Smoking Status *Q: Current Every Day Smoker Years of Tobacco use: 20 Packs/Tins Daily: 2 - Caffeine Use Caffeine Use: Reports: Soda Caffeine Use Comment: daily 1 cup - Recreational Drug Use Recreational Drug Use: Yes Recreational Drug Type: Reports: Marijuana/Hashish Recreational Drug Use Frequency: Socially ED ROS GENERAL - Review of Systems Review Of Systems: Comprehensive ROS is negative, except as noted in HPI. ED EXAM, GENERAL - Physical Exam Exam: See Below (see dictation) Course - Vital Signs Last Recorded V/S: Last Vital Signs Temp 97.1 F 02/06/19 09:59 Pulse 81 02/06/19 09:59 Resp 16 02/06/19 09:59 BP 125/84 02/06/19 09:59 Pulse Ox 94 L 02/06/19 09:59 - Orders/Labs/Meds Orders: Active Orders 24 hr Category Date Time Status CULTURE STREP A CONFIRMATION [RM] Stat Lab 02/06/19 10:06 Results STREP SCRN A RAPID W CULT CONF [RM] Stat Lab 02/06/19 10:06 Results Departure - Departure Time of Disposition: 10:47 Disposition: Home, Self-Care 01 Clinical Impression: Dysphagia Qualifiers: Dysphagia type: unspecified Qualified Code(s): R13.10 - Dysphagia, unspecified - Discharge Information Referrals: PCP,None [Primary Care Provider] - Forms: ED Department Discharge Additional Instructions: The following information is given to patients seen in the emergency department who are being discharged to home. This information is to outline your options for follow-up care. We provide all patients seen in our emergency department with a follow-up referral. The need for follow-up, as well as the timing and circumstances, are variable depending upon the specifics of your emergency department visit. If you don't have a primary care physician on staff, we will provide you with a referral. We always advise you to contact your personal physician following an emergency department visit to inform them of the circumstance of the visit and for follow-up with them and/or the need for any referrals to a consulting specialist. The emergency department will also refer you to a specialist when appropriate. This referral assures that you have the opportunity for follow-up care with a specialist. All of these measure are taken in an effort to provide you with optimal care, which includes your follow-up. Under all circumstances we always encourage you to contact your private physician who remains a resource for coordinating your care. When calling for follow-up care, please make the office aware that this follow-up is from your recent emergency room visit. If for any reason you are refused follow-up, please contact the [facility] Emergency Department at and asked to speak to the emergency department charge nurse. [facility] [address] [place] [address] [address] [facility] - General Surgery Professional Building [address], [address] [place] [address] 1. You can alternate ibuprofen and Tylenol as directed for pain and discomfort. 2. Follow-up with the general surgeon as discussed. The number has been provided above for you to call and set up an appointment. 3. Return to the ED as needed and as discussed. - My Orders Last 24 Hours: My Active Orders 02/06/19 10:06 CULTURE STREP A CONFIRMATION [RM] Stat STREP SCRN A RAPID W CULT CONF [RM] Stat - Assessment/Plan Last 24 Hours: My Active Orders 02/06/19 10:06 CULTURE STREP A CONFIRMATION [RM] Stat STREP SCRN A RAPID W CULT CONF [RM] Stat
--- NOTE | 2019-02-06 10:43 | CR ---
EXAM DATE: 02/06/19 PATIENT'S AGE: 44 Soft tissue neck: AP and lateral views of the neck were obtained. Comparison: No previous study. Vertebral body heights and disc space are maintained. Prevertebral soft tissues are normal. Slight calcification believed to be normal variant which is projected over the prevertebral soft tissue at C4. No radiopaque foreign body is seen. Impression: 1. Nothing acute is seen on two view soft tissue neck exam. Diagnostic code #2 This report was dictated in Mountain Standard Time Report Signed by Proxy. [facility]
[2019-02-06 11:01] VITALS: PULSE 70
== END 2019-02-06 11:01 | disposition home or self-care (01) ==
LOC: MW.ED 09:48
DX: R13.10 Dysphagia, unspecified (principal); E78.00 Pure hypercholesterolemia, unspecified; I10 Essential (primary) hypertension; E03.9 Hypothyroidism, unspecified; F17.210 Nicotine dependence, cigarettes, uncomplicated; Z79.82 Long term (current) use of aspirin; Z79.899 Other long term (current) drug therapy; Z79.02 Long term (current) use of antithrombotics/antiplatelets; Z79.890 Hormone replacement therapy
CPT/HCPCS: 70360; 70360-26; 87081; 87880-QW; 99284-25

== ENCOUNTER 2019-04-10 01:49 | Emergency (ER) | payer MEDICARE, OTHER ==
[2019-04-10] MEDS ORDERED: Ketorolac 30 MG/ML SDV IVPUSH ONE (02:17)
[2019-04-10] MEDS ORDERED: Sodium Chloride 0.9% 10 ML Syringe FLUSH PRN (02:17)
[2019-04-10] MEDS ORDERED: Sodium Chloride 0.9% 2.5 ML Syringe FLUSH PRN (02:17)
[2019-04-10] MEDS ORDERED: Sodium Chloride 0.9% 1,000 ML IV ONE (02:17)
--- NOTE | 2019-04-10 02:22 | EDM.PDOC ---
ED HPI GENERAL MEDICAL PROBLEM - General Chief Complaint: Abdominal Pain Stated Complaint: ABD PAIN Time Seen by Provider: 04/10/19 02:07 - History of Present Illness INITIAL COMMENTS - FREE TEXT/NARRATIVE: HISTORY AND PHYSICAL: History of present illness: The patient is a 44-year-old male with a history of hypertension hypercholesterolemia who has a pacemaker and a cardiac stent and follows with cardiology in [facility] and also follows at [facility] and who presents with vague mid abdominal pain that started this evening while he was carrying some paint. The patient saw Dr. Coyne in the surgery clinic earlier today for throat discomfort and he tells me that Dr. Coyne does want to do an endoscopy but needs to get cardiac clearance before he can schedule that. The patient says he is not having chest pain or shortness of breath fever chills or upper respiratory symptoms and no new trouble with swallowing. He says that he ate and drink normally and has no history of food intolerance and that he was just doing normal activities carrying some pain to this evening when he started having some vague mid abdominal pain which seemed to move around his abdomen. It is never localized right or left but seems to be more in the center and he says that it is deep and stabbing. He does not feel bloated and has had no vomiting or diarrhea no black or bloody stools and no fevers or flank pain with this. He says that he has been having normal bowel movements. He denies urinary complaints and says that he ate normally yesterday. He did not take anything for this pain. The patient has a history of a traumatic brain injury in the past and has difficulty remembering things but was able to answer all of my questions. Review of systems: As per history of present illness and below otherwise all systems reviewed and negative. Past medical history: As per history of present illness and as reviewed below otherwise noncontributory. Surgical history: As per history of present illness and as reviewed below otherwise noncontributory. Social history: No reported history of drug or alcohol abuse. Family history: As per history of present illness and as reviewed below otherwise noncontributory. Physical exam: General: Well-developed well-nourished man who is nontoxic and vital signs are noted by me. Patient was noted to be drinking Mountain Dew in the room and was asked to stop. There is a strong tobacco smell on the patient's clothing. HEENT: Atraumatic, normocephalic, pupils reactive, negative for conjunctival pallor or scleral icterus, mucous membranes moist, throat clear, neck supple, nontender, trachea midline. Lungs: Clear to auscultation, breath sounds equal bilaterally, chest nontender. Heart: S1S2, regular, negative for clicks, rubs, or JVD. Pacemaker is appreciated in the left upper chest wall Abdomen: Soft, nondistended, sounds are hypoactive and there is tympany in the upper abdomen without tenderness and there is some mild vague tenderness in the mid abdomen on deep palpation which is very hard to reproduce and there is no rebound or guarding. Negative for masses or hepatosplenomegaly. Negative for costovertebral tenderness. Pelvis: Stable nontender. Genitourinary: Deferred. Rectal: Deferred. Extremities: Atraumatic, negative for cords or calf pain. Neurovascular unremarkable. Neuro: Awake, alert, oriented. Cranial nerves II through XII unremarkable. Cerebellum unremarkable. Motor and sensory unremarkable throughout. Exam nonfocal. Diagnostics: CBC CMP amylase lipase lactic acid UA with reflex CT scan of the abdomen and pelvis Bladder scan--performed because the patient seemed to have difficulty urinating although on the CAT scan the bladder did not look enlarged Therapeutics: IV Fluids Toradol Patient was made aware of lab and scan results and is advised to follow-up with his provider in the clinic. He is aware of the pulmonary nodules the fat- containing umbilical hernia and the fatty liver and he was advised on dietary changes Patient was unable to give a urine sample in the ED so a bladder scan was performed which revealed only 183 cc of urine. I have advised him to increase his p.o. intake and to follow-up with his provider at [facility] if he continues to have symptoms with his urination. Impression: Abdominal pain Definitive disposition and diagnosis as appropriate pending reevaluation and review of above. abdominal Pain Score (Numeric/FACES): 4 - Related Data Allergies Allergy/AdvReac Type Severity Reaction Status Date / Time No Known Allergies Allergy Verified 04/10/19 02:04 Home Meds: Home Meds Aspirin 81 mg PO BEDTIME 02/15/15 [History] Citalopram [Celexa] 10 mg PO BEDTIME 02/15/15 [History] Clopidogrel [Plavix] 75 mg PO DAILY 02/15/15 [History] Levothyroxine [Synthroid] 50 mcg PO ACBREAKFAST 02/15/15 [History] Lisinopril 10 mg PO DAILY 02/15/15 [History] Metoprolol Succinate [Toprol XL] 50 mg PO DAILY 02/15/15 [History] Paliperidone Palmitate [Invega Sustenna] 156 mg IM ASDIRECTED 02/15/15 [History] QUEtiapine Fumarate [Quetiapine Fumarate] 800 mg PO BEDTIME 02/15/15 [History] atorvaSTATin [Lipitor] 40 mg PO BEDTIME 02/15/15 [History] cloNIDine [Catapres] 0.1 mg PO BEDTIME 02/15/15 [History] Baclofen 10 mg PO BEDTIME 02/06/19 [History] Past Medical History - Past Health History Medical/Surgical History: Denies Medical/Surgical History HEENT History: Reports: None Cardiovascular History: Reports: High Cholesterol, Hypertension, Pacemaker Other Cardiovascular History: states pm is for irregualr hr, but could possibly be from a heart attack. Respiratory History: Reports: None Gastrointestinal History: Reports: None Genitourinary History: Reports: None Musculoskeletal History: Reports: Other (See Below) Other Musculoskeletal History: skull fracture Neurological History: Reports: None Psychiatric History: Reports: Anxiety Endocrine/Metabolic History: Reports: Hypothyroidism Hematologic History: Reports: None Immunologic History: Reports: None Oncologic (Cancer) History: Reports: None Dermatologic History: Reports: None - Past Surgical History Head Surgeries/Procedures: Reports: None HEENT Surgical History: Reports: None Cardiovascular Surgical History: Reports: Other (See Below) Other Cardiovascular Surgeries/Procedures: pacemaker Respiratory Surgical History: Reports: None GI Surgical History: Reports: None Male Surgical History: Reports: None Endocrine Surgical History: Reports: None Neurological Surgical History: Reports: Other (See Below) Other Neurological Surgeries/Procedures: head surgery Musculoskeletal Surgical History: Reports: Other (See Below) Other Musculoskeletal Surgeries/Procedures:: titanium plates in head Oncologic Surgical History: Reports: None Dermatological Surgical History: Reports: None Social & Family History - Family History Family Medical History: Noncontributory - Caffeine Use Caffeine Use: Reports: Soda Caffeine Use Comment: daily 1 cup ED ROS GENERAL - Review of Systems Review Of Systems: Comprehensive ROS is negative, except as noted in HPI. ED EXAM, GENERAL - Physical Exam Exam: See Below (see dictation) Course - Vital Signs Last Recorded V/S: Last Vital Signs Temp 36.5 C 04/10/19 02:05 Pulse 111 H 04/10/19 02:05 Resp 20 04/10/19 02:05 BP 118/78 04/10/19 02:05 Pulse Ox 94 L 04/10/19 02:05 - Orders/Labs/Meds Orders: Active Orders 24 hr Category Date Time Status Bladder Scan [RC] ASDIRECTED Care 04/10/19 04:16 Active Sodium Chloride 0.9% [Saline Flush] Med 04/10/19 02:17 Active 10 ml FLUSH ASDIRECTED PRN Sodium Chloride 0.9% [Saline Flush] Med 04/10/19 02:17 Active 2.5 ml FLUSH ASDIRECTED PRN Saline Lock Insert [OM.PC] Stat Oth 04/10/19 02:16 Ordered Medication Orders Sodium Chloride (Saline Flush) 10 ml FLUSH ASDIRECTED PRN PRN Reason: Keep Vein Open Sodium Chloride (Saline Flush) 2.5 ml FLUSH ASDIRECTED PRN PRN Reason: Keep Vein Open Labs: Laboratory Tests 04/10/19 04/10/19 04/10/19 Range/Units 02:50 02:50 02:50 WBC 7.85 (4.0-11.0) K/uL RBC 5.35 (4.50-5.90) M/uL Hgb 17.8 H (13.0-17.0) g/dL Hct 48.2 (38.0-50.0) % MCV 90.1 (80.0-98.0) fL MCH 33.3 H (27.0-32.0) pg MCHC 36.9 (31.0-37.0) g/dL RDW Std Deviation 42.9 (28.0-62.0) fl RDW Coeff of Sigifredo 13 (11.0-15.0) % Plt Count 192 (150-400) K/uL MPV 9.10 (7.40-12.00) fL Neut % (Auto) 53.8 (48.0-80.0) % Lymph % (Auto) 32.2 (16.0-40.0) % [place] % (Auto) 8.7 (0.0-15.0) % Eos % (Auto) 5.0 (0.0-7.0) % Baso % (Auto) 0.3 (0.0-1.5) % Neut # (Auto) 4.2 (1.4-5.7) K/uL Lymph # (Auto) 2.5 H (0.6-2.4) K/uL [place] # (Auto) 0.7 (0.0-0.8) K/uL Eos # (Auto) 0.4 (0.0-0.7) K/uL Baso # (Auto) 0.0 (0.0-0.1) K/uL Nucleated RBC % 1.0 /100WBC Nucleated RBCs # 0 K/uL Lactate 1.1 (0.20-2.00) mmol/L Sodium 142 (136-148) mmol/L Potassium 3.4 L (3.5-5.1) mmol/L Chloride 103 (98-107) mmol/L Carbon Dioxide 26.8 (21.0-32.0) mmol/L BUN 8 (7.0-18.0) mg/dL Creatinine 1.1 (0.8-1.3) mg/dL Est Cr Clr Drug Dosing 87.56 mL/min Estimated GFR (MDRD) > 60.0 ml/min Glucose 121 H (74-106) mg/dL Calcium 8.9 (8.5-10.1) mg/dL Total Bilirubin 0.5 (0.2-1.0) mg/dL AST 24 (15-37) IU/L ALT 41 (14-63) IU/L Alkaline Phosphatase 65 (46-116) U/L Total Protein 7.9 (6.4-8.2) g/dL Albumin 4.3 (3.4-5.0) g/dL Globulin 3.6 (2.6-4.0) g/dL Albumin/Globulin Ratio 1.2 (0.9-1.6) Amylase 36 (25-115) U/L Lipase 144 (73-393) U/L Meds: Medications Generic Name Dose Route Start Last Admin Trade Name Freq PRN Reason Stop Dose Admin Sodium Chloride 10 ml 04/10/19 02:17 Saline Flush FLUSH ASDIRECTED PRN Keep Vein Open Sodium Chloride 2.5 ml 04/10/19 02:17 Saline Flush FLUSH ASDIRECTED PRN Keep Vein Open Discontinued Medications Generic Name Dose Route Start Last Admin Trade Name Eloise PRN Reason Stop Dose Admin Sodium Chloride 1,000 mls @ 999 mls/hr 04/10/19 02:17 04/10/19 02:59 Normal Saline IV 04/10/19 03:17 999 mls/hr STAT ONE Administration Iopamidol 100 ml 04/10/19 03:30 04/10/19 03:42 [id number] (76%) IVPUSH 04/10/19 03:31 100 ml ONETIME STA Administration Ketorolac Tromethamine 30 mg 04/10/19 02:17 04/10/19 02:59 Toradol IVPUSH 04/10/19 02:18 30 mg ONETIME ONE Administration Departure - Departure Time of Disposition: 04:19 Disposition: Home, Self-Care 01 Condition: Good Clinical Impression: Abdominal pain Qualifiers: Abdominal location: generalized Qualified Code(s): R10.84 - Generalized abdominal pain - Discharge Information Referrals: PCP,None [Primary Care Provider] - Forms: ED Department Discharge Additional Instructions: The following information is given to patients seen in the emergency department who are being discharged to home. This information is to outline your options for follow-up care. We provide all patients seen in our emergency department with a follow-up referral. The need for follow-up, as well as the timing and circumstances, are variable depending upon the specifics of your emergency department visit. If you don't have a primary care physician on staff, we will provide you with a referral. We always advise you to contact your personal physician following an emergency department visit to inform them of the circumstance of the visit and for follow-up with them and/or the need for any referrals to a consulting specialist. The emergency department will also refer you to a specialist when appropriate. This referral assures that you have the opportunity for followup care with a specialist. All of these measure are taken in an effort to provide you with optimal care, which includes your followup. Under all circumstances we always encourage you to contact your private physician who remains a resource for coordinating your care. When calling for followup care, please make the office aware that this follow-up is from your recent emergency room visit. If for any reason you are refused follow-up, please contact the [facility] emergency department at and ask to speak to the emergency department charge nurse. [facility]-General Surgery Professional Building [address] [place] [phone] Please continue with following with Dr. Coyne as you have been for your other medical issues but also discussed with him today's events. Also follow- up with your provider at [facility]. Try to adjust your diet and eat more healthy foods reducing caffeine intake and also reduce and/or quit smoking. You do have nodules in your lung that are stable and need to be followed up as an outpatient and 3 to 6 months. Return to ER as needed and as discussed and use [id number] medications such as Tylenol or ibuprofen or any other over- the-counter GI preps as you choose for your discomfort. Sepsis Event Note - Evaluation Sepsis Screening Result: No Definite Risk - Focused Exam Vital Signs: Vital Signs Temp Pulse Resp BP Pulse Ox 04/10/19 02:05 36.5 C 111 H 20 118/78 94 L Date Exam was Performed: 04/10/19 Time Exam was Performed: 04:31 - My Orders Last 24 Hours: My Active Orders 04/10/19 02:16 Saline Lock Insert [OM.PC] Stat 04/10/19 02:17 Sodium Chloride 0.9% [Saline Flush] 10 ml FLUSH ASDIRECTED PRN Sodium Chloride 0.9% [Saline Flush] 2.5 ml FLUSH ASDIRECTED PRN 04/10/19 04:16 Bladder Scan [RC] ASDIRECTED - Assessment/Plan Last 24 Hours: My Active Orders 04/10/19 02:16 Saline Lock Insert [OM.PC] Stat 04/10/19 02:17 Sodium Chloride 0.9% [Saline Flush] 10 ml FLUSH ASDIRECTED PRN Sodium Chloride 0.9% [Saline Flush] 2.5 ml FLUSH ASDIRECTED PRN 04/10/19 04:16 Bladder Scan [RC] ASDIRECTED
[2019-04-10 03:22] LABS: BLOOD UREA NITROGEN,BUN 8 mg/dL (7.0-18.0); CARBON DIOXIDE,CO2 26.8 mmol/L (21.0-32.0); CHLORIDE,CL 103 mmol/L (98-107); GLUCOSE RANDOM 121 mg/dL (74-106); LIPASE 144 U/L (73-393); POTASSIUM,K 3.4 mmol/L (3.5-5.1); SODIUM,NA 142 mmol/L (136-148)
[2019-04-10] MEDS ORDERED: Iopamidol 755 Mg/ML 100 ML Bottle IVPUSH STA (03:30)
--- NOTE | 2019-04-10 04:12 | CT ---
INDICATION: Abdominal pain TECHNIQUE: CT abdomen and pelvis acquired with 100 cc Isovue 370 IV contrast. COMPARISON: November 30, 2017 FINDINGS: Lower chest: Two pulmonary nodules in the left lower lobe on image 17 series 201, stable compared to the prior exam. The largest of these nodules measures 6 mm in diameter. AICD noted. Liver: Hepatic steatosis. Spleen: Unremarkable. Pancreas: Unremarkable. Gallbladder and bile ducts: Unremarkable. Adrenal glands: Unremarkable. Kidneys: Unremarkable. GI tract: Unremarkable. Appendix is normal. Vascular structures: Unremarkable. Lymph nodes: Unremarkable. Miscellaneous: Small fat containing umbilical hernia. No free air or significant free fluid. Pelvic Organs: Unremarkable. Bones: Grade 1 anterolisthesis L5 on S1 secondary to bilateral L5 pars defects.. IMPRESSION: No acute intra-abdominal process identified. Hepatic steatosis. Small fat containing umbilical hernia. Two pulmonary nodules in the left lower lobe. Recommend follow-up per Fleischner society guidelines, as listed below. FLEISCHNER SOCIETY GUIDELINES - SOLID NODULES: MULTIPLE LOW RISK - nodule less than 6 mm: No routine follow-up. - nodule 6-8 mm: CT at 3-6 months, then consider CT at 18-24 months. - nodule greater than 8 mm: CT at 3-6 months, then consider CT at 18-24 months. MULTIPLE HIGH RISK - nodule less than 6 mm: Optional CT at 12 months. - nodule 6-8 mm: CT at 3-6 months, then at 18-24 months. - nodule greater than 8 mm: CT at 3-6 months, then at 18-24 months. Please note that all CT scans at this facility use dose modulation, iterative reconstruction, and/or weight-based dosing when appropriate to reduce radiation dose to as low as reasonably achievable. Dictated by Shaylee Morrissey MD @ Apr 10 2019 4:11AM Signed by Dr. Shaylee Morrissey @ Apr 10 2019 4:11AM
[2019-04-10 05:06] VITALS: BP 141/76; PULSE 82
== END 2019-04-10 04:50 | disposition home or self-care (01) ==
LOC: MW.ED 01:49
DX: R10.84 Generalized abdominal pain (principal); I10 Essential (primary) hypertension; E78.00 Pure hypercholesterolemia, unspecified; E03.9 Hypothyroidism, unspecified; F41.9 Anxiety disorder, unspecified; Z79.82 Long term (current) use of aspirin; Z79.02 Long term (current) use of antithrombotics/antiplatelets; Z79.890 Hormone replacement therapy; Z79.899 Other long term (current) drug therapy
CPT/HCPCS: 36415; 51798; 74177; 80053; 82150; 83605; 83690; 85025; 96361; 96374; 99284; J1885; J7030; Q9967

== ENCOUNTER 2020-05-27 21:55 | Emergency (ER) | payer MEDICARE, MEDICAID, OTHER ==
--- NOTE | 2020-05-27 22:45 | EDM.PDOC ---
ED HPI GENERAL MEDICAL PROBLEM - General Chief Complaint: General Stated Complaint: PACE MAKER IS BOTHERING HIM NEAR LT SHOULDER AREA Time Seen by Provider: 05/27/20 22:43 - History of Present Illness INITIAL COMMENTS - FREE TEXT/NARRATIVE: History of present illness: [] Review of systems: As per history of present illness and below otherwise all systems reviewed and negative. Past medical history: As per history of present illness and as reviewed below otherwise noncontributory. Patient's defibrillator went off 3 times about a half an hour ago. Did shock him and felt like somebody stabbed him in the chest. It sore in the area of the defibrillator subsequently. He has no shortness of breath diaphoresis or other symptoms. He hasn't had any diarrhea reason why he would have an electrolyte imbalance. Defibrillator was placed years ago. It has not gone off since. Surgical history: As per history of present illness and as reviewed below otherwise noncontributory. The patient says he has had an AK. He is a smoker. He is treated for blood pressure and cholesterol. He is not diabetic. He has a remote history in the family of AK on the father side in the grandparents. Social history: No reported history of drug or alcohol abuse. Family history: As per history of present illness and as reviewed below otherwise noncontributory. Physical exam: Constitutional - well developed, well-nourished and in no acute distress HEENT - normocephalic, no evidence of trauma - external nose and mouth normal - no mass in neck and no JVD - mucosae moist EYES - full EOM, PERRL, no icterus - no evidence of inflammation, injection, or drainage Respiratory - no respiratory distress, equal bilateral expansion, lungs clear to auscultation and no abnormal lung sounds Cardiovascular - Regular Rhythm with S1 and S2 appreciated and no murmur, gallop or rub. GI - abdomen soft without distension or organomegaly - normal bowel sounds - no guard or rebound Musculoskeletal tender in the area of the pacemaker defibrillator in the upper anterior chest but no erythema heat or swelling noted. No gross deformity of long bones or joints - no tenderness, swelling or edema Neurologic - Alert and oriented times four - CN II-XII grossly intact - motor sensory and coordination symmetrically normal Psychiatric - appropriate mood and affect with normal thought content Hematologic - No petechiae or purpura - mucosa appropriate color and sclera not pale - normal nail bed color and refill Integument - no rash or evidence of trauma - normal turgor Diagnostics: [] Therapeutics: [] Impression: [] Plan: [] Definitive disposition and diagnosis as appropriate pending reevaluation and review of above. - Related Data Allergies Allergy/AdvReac Type Severity Reaction Status Date / Time No Known Allergies Allergy Verified 05/27/20 22:39 Home Meds: Home Meds Aspirin 81 mg PO BEDTIME 02/15/15 [History] Citalopram [Celexa] 10 mg PO BEDTIME 02/15/15 [History] Clopidogrel [Plavix] 75 mg PO DAILY 02/15/15 [History] Levothyroxine [Synthroid] 50 mcg PO ACBREAKFAST 02/15/15 [History] Lisinopril 10 mg PO DAILY 02/15/15 [History] Metoprolol Succinate [Toprol XL] 50 mg PO DAILY 02/15/15 [History] Paliperidone Palmitate [Invega Sustenna] 156 mg IM ASDIRECTED 02/15/15 [History] QUEtiapine Fumarate [Quetiapine Fumarate] 800 mg PO BEDTIME 02/15/15 [History] atorvaSTATin [Lipitor] 40 mg PO BEDTIME 02/15/15 [History] cloNIDine [Catapres] 0.1 mg PO BEDTIME 02/15/15 [History] Baclofen 10 mg PO BEDTIME 02/06/19 [History] Past Medical History - Past Health History Medical/Surgical History: Denies Medical/Surgical History HEENT History: Reports: None Cardiovascular History: Reports: High Cholesterol, Hypertension, Pacemaker Other Cardiovascular History: states pm is for irregualr hr, but could possibly be from a heart attack. Respiratory History: Reports: None Gastrointestinal History: Reports: None Genitourinary History: Reports: None Musculoskeletal History: Reports: Other (See Below) Other Musculoskeletal History: skull fracture Neurological History: Reports: None Psychiatric History: Reports: Anxiety Endocrine/Metabolic History: Reports: Hypothyroidism Hematologic History: Reports: None Immunologic History: Reports: None Oncologic (Cancer) History: Reports: None Dermatologic History: Reports: None - Infectious Disease History Infectious Disease History: Reports: Chicken Pox - Past Surgical History Head Surgeries/Procedures: Reports: None HEENT Surgical History: Reports: None Cardiovascular Surgical History: Reports: Other (See Below) Other Cardiovascular Surgeries/Procedures: pacemaker Respiratory Surgical History: Reports: None GI Surgical History: Reports: None Male Surgical History: Reports: None Endocrine Surgical History: Reports: None Neurological Surgical History: Reports: Other (See Below) Other Neurological Surgeries/Procedures: head surgery Musculoskeletal Surgical History: Reports: Other (See Below) Other Musculoskeletal Surgeries/Procedures:: titanium plates in head Oncologic Surgical History: Reports: None Dermatological Surgical History: Reports: None Social & Family History - Family History Family Medical History: No Pertinent Family History - Tobacco Use Packs/Tins Daily: 2 - Caffeine Use Caffeine Use: Reports: None Caffeine Use Comment: daily 1 cup - Recreational Drug Use Recreational Drug Use: Yes Recreational Drug Type: Reports: Marijuana/Hashish Recreational Drug Use Frequency: Socially ED ROS GENERAL - Review of Systems Review Of Systems: Comprehensive ROS is negative, except as noted in HPI. ED EXAM, GENERAL - Physical Exam Exam: See Below Free Text/Narrative:: My physical exam is in the HPI #1 Interpretation EKG Interpretation Comments: EKG done 2241 hrs. sinus rhythm heart rate 91 [place] I 01 there is a Q in the anterior leads and it is compared to 22 March 2018 with no difference impression no acute AK #2 Interpretation EKG Interpretation Comments: G done at 5:50 AM sinus rhythm heart rate 76 DC interval 181 axis 98 R wave of significance until V5 in the precordium compared to prior done earlier this morning no change other than rate impression no obvious injury Course - Vital Signs Text/Narrative:: 2352 hrs. I discussed the case with Dr. Russo. He was not surprised with the troponin after the pacemaker relator went off all repeat the troponin after he has been settled and without any pacemaker released. Then will decide what to do. Dr. Russo did not feel with the symptoms he is having now that he needed to be transferred. My double that I discussed with Dr. Barrett who agreed to take the patient at [place]'s emergency room where he can have cardiology see him. Transport will be arranged but by air it may be 8 AM before I can get him transportation out of here. I feel like he is stable and I will repeat his troponin and his EKG shortly and make sure things are not deteriorating. 2:52 AM the patient is comfortable and resting. He has been accepted by Dr. Barrett in my not. It is still possible the troponin I is rising only because of the defibrillations or cardioversions that happened. It will be 8:00 before ground transport can take the patient to [place]. At 6:00 I will repeat his enzymes and EKG. In order to fly him the [place] that had to get a plane to come from [place]. He agreed to rest here and let me know if he had any symptoms while he is waiting. 06 29 troponin up to 2.7. Patient will see cardiology in [place] as planned. No change in condition EKG unchanged. Last Recorded V/S: Last Vital Signs Temp 36.6 C 05/27/20 22:36 Pulse 68 05/28/20 07:52 Resp 18 05/28/20 07:52 BP 109/75 05/28/20 07:52 Pulse Ox 93 L 05/28/20 07:52 - Orders/Labs/Meds Orders: Active Orders 24 hr Category Date Time Status Saline Lock Insert [OM.PC] Stat Oth 05/27/20 22:49 Ordered Labs: Laboratory Tests 05/27/20 05/27/20 05/28/20 Range/Units 22:48 22:48 01:50 WBC 11.50 H (4.0-11.0) K/uL RBC 5.93 H (4.50-5.90) M/uL Hgb 19.2 H (13.0-17.0) g/dL Hct 53.5 H (38.0-50.0) % MCV 90.2 (80.0-98.0) fL MCH 32.4 H (27.0-32.0) pg MCHC 35.9 (31.0-37.0) g/dL RDW Std Deviation 42.2 (28.0-62.0) fl RDW Coeff of Sigifredo 13 (11.0-15.0) % Plt Count 195 (150-400) K/uL MPV 9.50 (7.40-12.00) fL Neut % (Auto) 80.4 H (48.0-80.0) % Lymph % (Auto) 12.8 L (16.0-40.0) % Campbell % (Auto) 5.6 (0.0-15.0) % Eos % (Auto) 0.9 (0.0-7.0) % Baso % (Auto) 0.3 (0.0-1.5) % Neut # (Auto) 9.3 H (1.4-5.7) K/uL Lymph # (Auto) 1.5 (0.6-2.4) K/uL Campbell # (Auto) 0.6 (0.0-0.8) K/uL Eos # (Auto) 0.1 (0.0-0.7) K/uL Baso # (Auto) 0.0 (0.0-0.1) K/uL Nucleated RBC % 0.0 /100WBC Nucleated RBCs # 0 K/uL Sodium 139 (136-148) mmol/L Potassium 3.9 (3.5-5.1) mmol/L Chloride 101 (98-107) mmol/L Carbon Dioxide 27.2 (21.0-32.0) mmol/L BUN 7 (7.0-18.0) mg/dL Creatinine 1.1 (0.8-1.3) mg/dL Est Cr Clr Drug Dosing 86.64 mL/min Estimated GFR (MDRD) > 60.0 ml/min Glucose 134 H (74-106) mg/dL Calcium 9.0 (8.5-10.1) mg/dL Magnesium 2.0 (1.8-2.4) mg/dL Total Bilirubin 0.7 (0.2-1.0) mg/dL AST 23 (15-37) IU/L ALT 40 (14-63) IU/L Alkaline Phosphatase 59 (46-116) U/L Troponin I 0.891 H* 1.760 H* (0.000-0.056) ng/mL Total Protein 8.2 (6.4-8.2) g/dL Albumin 4.4 (3.4-5.0) g/dL Globulin 3.8 (2.6-4.0) g/dL Albumin/Globulin Ratio 1.2 (0.9-1.6) 05/28/20 Range/Units 05:58 WBC (4.0-11.0) K/uL RBC (4.50-5.90) M/uL Hgb (13.0-17.0) g/dL Hct (38.0-50.0) % MCV (80.0-98.0) fL MCH (27.0-32.0) pg MCHC (31.0-37.0) g/dL RDW Std Deviation (28.0-62.0) fl RDW Coeff of Sigifredo (11.0-15.0) % Plt Count (150-400) K/uL MPV (7.40-12.00) fL Neut % (Auto) (48.0-80.0) % Lymph % (Auto) (16.0-40.0) % Campbell % (Auto) (0.0-15.0) % Eos % (Auto) (0.0-7.0) % Baso % (Auto) (0.0-1.5) % Neut # (Auto) (1.4-5.7) K/uL Lymph # (Auto) (0.6-2.4) K/uL Campbell # (Auto) (0.0-0.8) K/uL Eos # (Auto) (0.0-0.7) K/uL Baso # (Auto) (0.0-0.1) K/uL Nucleated RBC % /100WBC Nucleated RBCs # K/uL Sodium (136-148) mmol/L Potassium (3.5-5.1) mmol/L Chloride (98-107) mmol/L Carbon Dioxide (21.0-32.0) mmol/L BUN (7.0-18.0) mg/dL Creatinine (0.8-1.3) mg/dL Est Cr Clr Drug Dosing mL/min Estimated GFR (MDRD) ml/min Glucose (74-106) mg/dL Calcium (8.5-10.1) mg/dL Magnesium (1.8-2.4) mg/dL Total Bilirubin (0.2-1.0) mg/dL AST (15-37) IU/L ALT (14-63) IU/L Alkaline Phosphatase (46-116) U/L Troponin I 2.733 H* (0.000-0.056) ng/mL Total Protein (6.4-8.2) g/dL Albumin (3.4-5.0) g/dL Globulin (2.6-4.0) g/dL Albumin/Globulin Ratio (0.9-1.6) Meds: Medications Discontinued Medications Generic Name Dose Route Start Last Admin Trade Name Freq PRN Reason Stop Dose Admin Metoprolol Succinate 50 mg 05/27/20 23:50 05/27/20 23:57 Metoprolol Succinate 50 Mg Tab.Er PO 05/27/20 23:51 50 mg ONETIME ONE Administration Sodium Chloride 10 ml 05/27/20 22:49 05/27/20 23:05 Sodium Chloride 0.9% 10 Ml Syringe FLUSH 10 ml ASDIRECTED PRN Administration Keep Vein Open Sodium Chloride 2.5 ml 05/27/20 22:49 05/27/20 23:05 Sodium Chloride 0.9% 2.5 Ml Syringe FLUSH 2.5 ml ASDIRECTED PRN Administration Keep Vein Open Departure - Departure Time of Disposition: 08:30 Disposition: DC/Tfer to Acute Hospital 02 Condition: Good Clinical Impression: Defibrillator discharge - Discharge Information Referrals: PCP,None [Primary Care Provider] - Forms: ED Department Discharge Sepsis Event Note (ED) - Evaluation Sepsis Screening Result: No Definite Risk - Focused Exam Vital Signs: Vital Signs Pulse Resp BP Pulse Ox 05/28/20 07:52 68 18 109/75 93 L - My Orders Last 24 Hours: My Active Orders 05/27/20 22:49 Saline Lock Insert [OM.PC] Stat - Assessment/Plan Last 24 Hours: My Active Orders 05/27/20 22:49 Saline Lock Insert [OM.PC] Stat
[2020-05-27] MEDS ORDERED: Sodium Chloride 0.9% 10 ML Syringe FLUSH PRN (22:49)
[2020-05-27] MEDS ORDERED: Sodium Chloride 0.9% 2.5 ML Syringe FLUSH PRN (22:49)
[2020-05-27 23:17] LABS: BLOOD UREA NITROGEN,BUN 7 mg/dL (7.0-18.0); CARBON DIOXIDE,CO2 27.2 mmol/L (21.0-32.0); CHLORIDE,CL 101 mmol/L (98-107); GLUCOSE RANDOM 134 mg/dL (74-106); POTASSIUM,K 3.9 mmol/L (3.5-5.1); SODIUM,NA 139 mmol/L (136-148)
[2020-05-27] MEDS ORDERED: Metoprolol Succinate 50 MG Tab.ER PO ONE (23:50)
--- NOTE | 2020-05-28 00:10 | CR ---
INDICATION: Chest pain TECHNIQUE: Chest radiograph 1 view COMPARISON: 12/27/2016 FINDINGS: Moderate degradation of image quality noted due to body habitus. Mediastinum: The mediastinum is normal in appearance. The heart silhouette is normal in size and morphology. Left cardiac defibrillator is noted without change. Lung: Both lungs are unremarkable in appearance. No sign of pleural effusion seen. No pneumothorax is identified. Bone and Soft tissue: Healed right clavicular fracture is noted without change. IMPRESSION: 1. No acute cardiopulmonary disease is seen. Dictated by Ilir Harry MD @ 05/28/2020 12:08:55 AM Dictated by: Ilir Harry MD @ 05/28/2020 00:09:01 (Electronically Signed)
[2020-05-28 07:53] VITALS: BP 109/75; PULSE 68
--- NOTE | 2020-05-28 08:32 | PCM.PRNOTE ---
- Free Text/Narrative Note: Device interrogation last interrogation NA DOS 05/28/2020 Company [facility] [place] single chamber Model Energen ICD Mode VVI LRL 45 bpm intrinsic rhythm SR Battery life 7 yrs Ventricular lead sensin.6 capture threshold: 0.8@0.4 ms impedance: 611 shock 62 episode: VT 05/27/2020 7pm Burst, Ramp, 41Jx 5 for VT 170 bpm NSVT 05/28/2020 15 sec Imp appropriate ICD shock, normally functioning single chamber ICD. Plan per ER.
== END 2020-05-28 09:16 ==
LOC: MW.ED 21:55
DX: T82.897A Other specified complication of cardiac prosthetic devices, implants and grafts, initial encounter (principal); E78.00 Pure hypercholesterolemia, unspecified; I10 Essential (primary) hypertension; E03.9 Hypothyroidism, unspecified; I25.2 Old myocardial infarction; F17.200 Nicotine dependence, unspecified, uncomplicated; Z79.82 Long term (current) use of aspirin; Z79.02 Long term (current) use of antithrombotics/antiplatelets; Z79.899 Other long term (current) drug therapy
CPT/HCPCS: 36415; 71045; 80053; 83735; 84484; 85025; 93005; 99285; A9270; 93010

== ENCOUNTER 2020-07-18 15:29 | Emergency (ER) | payer MEDICARE, MEDICAID, OTHER ==
--- NOTE | 2020-07-18 16:25 | EDM.PDOCBH ---
ED HPI GENERAL MEDICAL PROBLEM - General Chief Complaint: Behavioral/Psych Stated Complaint: forgot to take meds Time Seen by Provider: 07/18/20 15:32 Source of Information: Reports: Patient History Limitations: Reports: No Limitations - History of Present Illness INITIAL COMMENTS - FREE TEXT/NARRATIVE: Patient is a 45-year-old male with a history of schizophrenia also has AICD. Patient presents today with his father after he had episodes where he drove and try to run away to [place] in his car on his cell phone on his Adderall. Patient was able hitchhike back get here. Patient denies any suicide he H in arms ideation or thoughts of hurting anyone else or himself. Patient father is concerned that patient may run away again and wants to make sure he is safe. Patient is fully cooperative and has no medical complaints. Patient is able to speak and make decisions on his own. We spoke to Joseph who knows the patient very well and states that patient is in control of his own care. - Related Data Allergies Allergy/AdvReac Type Severity Reaction Status Date / Time No Known Allergies Allergy Verified 07/18/20 16:18 Home Meds: Home Meds Aspirin 81 mg PO BEDTIME 02/15/15 [History] Citalopram [Celexa] 10 mg PO BEDTIME 02/15/15 [History] Clopidogrel [Plavix] 75 mg PO DAILY 02/15/15 [History] Levothyroxine [Synthroid] 50 mcg PO ACBREAKFAST 02/15/15 [History] Lisinopril 10 mg PO DAILY 02/15/15 [History] Metoprolol Succinate [Toprol XL] 50 mg PO DAILY 02/15/15 [History] Paliperidone Palmitate [Invega Sustenna] 156 mg IM ASDIRECTED 02/15/15 [History] QUEtiapine Fumarate [Quetiapine Fumarate] 800 mg PO BEDTIME 02/15/15 [History] atorvaSTATin [Lipitor] 40 mg PO BEDTIME 02/15/15 [History] cloNIDine [Catapres] 0.1 mg PO BEDTIME 02/15/15 [History] Baclofen 10 mg PO BEDTIME 02/06/19 [History] Past Medical History - Past Health History Medical/Surgical History: Denies Medical/Surgical History HEENT History: Reports: None Cardiovascular History: Reports: High Cholesterol, Hypertension, Pacemaker Other Cardiovascular History: states pm is for irregualr hr, but could possibly be from a heart attack. Respiratory History: Reports: None Gastrointestinal History: Reports: None Genitourinary History: Reports: None Musculoskeletal History: Reports: Other (See Below) Other Musculoskeletal History: skull fracture Neurological History: Reports: None Psychiatric History: Reports: Anxiety Endocrine/Metabolic History: Reports: Hypothyroidism Hematologic History: Reports: None Immunologic History: Reports: None Oncologic (Cancer) History: Reports: None Dermatologic History: Reports: None - Infectious Disease History Infectious Disease History: Reports: Chicken Pox - Past Surgical History Head Surgeries/Procedures: Reports: None HEENT Surgical History: Reports: None Cardiovascular Surgical History: Reports: Other (See Below) Other Cardiovascular Surgeries/Procedures: pacemaker Respiratory Surgical History: Reports: None GI Surgical History: Reports: None Male Surgical History: Reports: None Endocrine Surgical History: Reports: None Neurological Surgical History: Reports: Other (See Below) Other Neurological Surgeries/Procedures: head surgery Musculoskeletal Surgical History: Reports: Other (See Below) Other Musculoskeletal Surgeries/Procedures:: titanium plates in head Oncologic Surgical History: Reports: None Dermatological Surgical History: Reports: None Social & Family History - Family History Family Medical History: No Pertinent Family History - Caffeine Use Caffeine Use: Reports: None Caffeine Use Comment: daily 1 cup ED ROS GENERAL - Review of Systems Review Of Systems: See Below Constitutional: Reports: No Symptoms HEENT: Reports: No Symptoms Respiratory: Reports: No Symptoms Cardiovascular: Reports: No Symptoms Endocrine: Reports: No Symptoms GI/Abdominal: Reports: No Symptoms : Reports: No Symptoms Musculoskeletal: Reports: No Symptoms Skin: Reports: No Symptoms Neurological: Reports: No Symptoms Psychiatric: Reports: No Symptoms Hematologic/Lymphatic: Reports: No Symptoms Immunologic: Reports: No Symptoms ED EXAM, BEHAVIORAL HEALTH - Physical Exam Exam: See Below Exam Limited By: No Limitations Respiratory/Chest: No Respiratory Distress, Lungs Clear Cardiovascular: Normal Peripheral Pulses, Regular Rate, Rhythm GI/Abdominal: Normal Bowel Sounds, Soft, Non-Tender Extremities: Increased Warmth Neurological: Alert, Normal Mood/Affect, Normal Cognition COURSE, BEHAVIORAL HEALTH COMP - Course Vital Signs: Last Vital Signs Temp 97.2 F 07/18/20 15:50 Pulse 75 07/18/20 15:50 Resp 18 07/18/20 15:50 BP 137/93 H 07/18/20 15:50 Pulse Ox 96 07/18/20 15:50 Departure - Departure Time of Disposition: 16:24 Disposition: Home, Self-Care 01 Condition: Good Clinical Impression: Psychiatric care - Discharge Information *PRESCRIPTION DRUG MONITORING PROGRAM REVIEWED*: Not Applicable *COPY OF PRESCRIPTION DRUG MONITORING REPORT IN PATIENT KALIA: Not Applicable (Will be to labs) Referrals: Damien Russo MD [Primary Care Provider] - Additional Instructions: The following information is given to patients seen in the emergency department who are being discharged to home. This information is to outline your options for follow-up care. We provide all patients seen in our emergency department with a follow-up referral. The need for follow-up, as well as the timing and circumstances, are variable depending upon the specifics of your emergency department visit. If you don't have a primary care physician on staff, we will provide you with a referral. We always advise you to contact your personal physician following an emergency department visit to inform them of the circumstance of the visit and for follow-up with them and/or the need for any referrals to a consulting specialist. The emergency department will also refer you to a specialist when appropriate. This referral assures that you have the opportunity for follow-up care with a specialist. All of these measure are taken in an effort to provide you with optimal care, which includes your follow-up. Under all circumstances we always encourage you to contact your private physician who remains a resource for coordinating your care. When calling for follow-up care, please make the office aware that this follow-up is from your recent emergency room visit. If for any reason you are refused follow-up, please contact the [facility] Emergency Department at and asked to speak to the emergency department charge nurse. Please follow up with your primary care physician. If you do not have a primary care physician, see below: [facility] [address] [place] [id number] [facility] [address] [place] [id number] You were seen today for a evaluation. You have been medically cleared and we would like you to go to [facility] for further care for your psychiatric ev aluation. Sepsis Event Note (ED) - Evaluation Sepsis Screening Result: No Definite Risk - Focused Exam Vital Signs: Vital Signs Temp Pulse Resp BP Pulse Ox 07/18/20 15:50 97.2 F 75 18 137/93 H 96 - Assessment/Plan Plan: Patient 39-year-old male came in today for a schizophrenic episode. On exam patient is cooperative answering questions. Patient father at bedside is concerned the patient may run away before he can see his therapist. He was treated [facility] and patient can go to the crisis center for evaluation.
[2020-07-18 16:46] VITALS: BP 136/98; PULSE 78
== END 2020-07-18 16:46 | disposition home or self-care (01) ==
LOC: MW.ED 15:29
DX: Z04.6 Encounter for general psychiatric examination, requested by authority (principal); E78.00 Pure hypercholesterolemia, unspecified; I10 Essential (primary) hypertension; E03.9 Hypothyroidism, unspecified; Z95.0 Presence of cardiac pacemaker; Z79.82 Long term (current) use of aspirin; Z79.899 Other long term (current) drug therapy; Z79.02 Long term (current) use of antithrombotics/antiplatelets
CPT/HCPCS: 99282

== ENCOUNTER 2021-01-13 18:42 | Emergency (ER) | payer MEDICARE, MEDICAID ==
[2021-01-13 18:58] VITALS: BP 139/87; PULSE 69
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
[2021-01-13 19:46] LABS: ACETAMINOPHEN <2.0 ug/mL; BLOOD UREA NITROGEN,BUN 13 mg/dL (7.0-18.0); CARBON DIOXIDE,CO2 27.4 mmol/L (21.0-32.0); CHLORIDE,CL 102 mmol/L (98-107); GLUCOSE RANDOM 151 mg/dL (74-106); POTASSIUM,K 4.2 mmol/L (3.5-5.1); SODIUM,NA 138 mmol/L (136-148)
== END 2021-01-13 21:07 ==
LOC: MW.ED 18:42
DX: F20.9 Schizophrenia, unspecified (principal); E78.00 Pure hypercholesterolemia, unspecified; I10 Essential (primary) hypertension; E03.9 Hypothyroidism, unspecified; Z79.82 Long term (current) use of aspirin; Z72.0 Tobacco use; Z02.89 Encounter for other administrative examinations; Z20.822 Contact with and (suspected) exposure to COVID-19; Z79.899 Other long term (current) drug therapy
CPT/HCPCS: 36415; 80053; 80143; 80179; 80305; 80307; 81003; 83735; 84439; 84443; 84481; 85025; 99283; U0002

== ENCOUNTER 2021-10-02 15:35 | Emergency (ER) | payer MEDICARE, MEDICAID, OTHER ==
[2021-10-02 16:26] VITALS: BP 110/70; PULSE 58
== END 2021-10-02 17:15 | disposition home or self-care (01) ==
LOC: MW.ED 15:35
DX: H92.01 Otalgia, right ear (principal); E78.00 Pure hypercholesterolemia, unspecified; I10 Essential (primary) hypertension; F17.210 Nicotine dependence, cigarettes, uncomplicated; Z79.899 Other long term (current) drug therapy; Z79.82 Long term (current) use of aspirin
CPT/HCPCS: 99282

== ENCOUNTER 2021-12-22 11:10 | Emergency (ER) | payer MEDICARE, MEDICAID | END 2021-12-22 14:48 | disposition left against medical advice (07) | LOC: MW.ED 11:10 | DX: Z02.89 Encounter for other administrative examinations (principal) | CPT/HCPCS: 99283 ==

== ENCOUNTER 2022-08-06 15:16 | Emergency (ER) | payer MEDICARE, MEDICAID ==
[2022-08-06] MEDS ORDERED: Sodium Chloride 0.9% 2.5 ML Syringe FLUSH PRN (15:59)
[2022-08-06] MEDS ORDERED: Sodium Chloride 0.9% 10 ML Syringe FLUSH PRN (15:59)
[2022-08-06 16:36] LABS: HEMATOCRIT 49.3 % (38.0-50.0); HEMOGLOBIN 17.7 g/dL (13.0-17.0); LYMPHOCYTES PERCENT AUTO 25.3 % (16.0-40.0); MEAN CORPUSCULAR HEMOGLOBIN 31.7 pg (27.0-32.0); MEAN CORPUSCULAR HGB CONC 35.9 g/dL (31.0-37.0); MEAN CORPUSCULAR VOLUME 88.4 fL (80.0-98.0); MONOCYTES ABSOLUTE AUTO 0.6 K/uL (0.0-0.8); MONOCYTES PERCENT AUTO 6.8 % (0.0-15.0); NEUTROPHILS ABSOLUTE AUTO 5.5 K/uL (1.4-5.7); NEUTROPHILS PERCENT AUTO 67.9 % (48.0-80.0); PLATELET COUNT,PLT 178 K/uL (150-400); RED BLOOD CELL COUNT 5.58 M/uL (4.50-5.90); WHITE BLOOD CELL COUNT,WBC 8.06 K/uL (4.0-11.0)
[2022-08-06 17:10] LABS: A/G RATIO 1.1 (0.9-1.6); BILIRUBIN TOTAL 0.6 mg/dL (0.2-1.0); CARBON DIOXIDE,CO2 29.9 mmol/L (21.0-32.0); EST CRCL DRUG DOSING (CG) 93.28 mL/min; POTASSIUM,K 4.1 mmol/L (3.5-5.1); PROTEIN TOTAL,TP 7.6 g/dL (6.4-8.2)
[2022-08-06 19:05] VITALS: PULSE 62
[2022-08-06 20:44] VITALS: BP 132/74
== END 2022-08-06 20:43 | disposition home or self-care (01) ==
LOC: MW.ED 15:16
DX: R07.9 Chest pain, unspecified (principal); I25.2 Old myocardial infarction; E03.9 Hypothyroidism, unspecified; F17.210 Nicotine dependence, cigarettes, uncomplicated; Z79.899 Other long term (current) drug therapy
CPT/HCPCS: 36415; 71045; 80053; 83880; 84484; 85025; 99285; J3490; 93005; 93010; 99282

== ENCOUNTER 2022-08-14 17:43 | Emergency (ER) | payer MEDICARE, MEDICAID ==
[2022-08-14] MEDS ORDERED: Iopamidol 755 MG/ML 500 ML Multipack Bottle IVPUSH ONE (20:47)
[2022-08-14 22:42] VITALS: BP 118/74; PULSE 69
== END 2022-08-14 22:28 | disposition home or self-care (01) ==
LOC: MW.ED 17:43
DX: M79.89 Other specified soft tissue disorders (principal); I25.2 Old myocardial infarction; E03.9 Hypothyroidism, unspecified; F17.210 Nicotine dependence, cigarettes, uncomplicated; Z79.02 Long term (current) use of antithrombotics/antiplatelets; Z79.899 Other long term (current) drug therapy
CPT/HCPCS: 73706; 93971; 99283; Q9967

== ENCOUNTER 2023-03-07 12:40 | Emergency (ER) | payer MEDICARE, MEDICAID ==
[2023-03-07] MEDS ORDERED: Sodium Chloride 0.9% 1,000 ML IV ONE (12:45)
[2023-03-07 13:05] LABS: BASOPHILS ABSOLUTE AUTO 0.01 K/uL (0.00-0.20); BASOPHILS PERCENT AUTO 0.1 % (0.0-1.0); HEMATOCRIT 52.1 % (42.0-52.0); HEMOGLOBIN 19.1 g/dL (14.0-18.0); IMMATURE GRAN ABSOLUTE AUTO 0.02 K/uL (0.00-0.05); IMMATURE GRAN PERCENT AUTO 0.2 % (0.0-0.4); LYMPHOCYTES ABSOLUTE AUTO 1.97 K/uL (1.00-4.80); LYMPHOCYTES PERCENT AUTO 20.5 % (24.0-44.0); MEAN CORPUSCULAR HEMOGLOBIN 32.2 pg (28.0-32.0); MEAN CORPUSCULAR HGB CONC 36.7 g/dL (32.0-36.0); MEAN CORPUSCULAR VOLUME 87.9 fL (83.0-99.0); MONOCYTES ABSOLUTE AUTO 0.61 K/uL (0.00-0.80); MONOCYTES PERCENT AUTO 6.3 % (0.0-8.0); NEUTROPHILS ABSOLUTE AUTO 7.01 K/uL (1.80-7.70); NEUTROPHILS PERCENT AUTO 72.9 % (41.0-71.0); PLATELET COUNT,PLT 197 K/uL (150-400); RED BLOOD CELL COUNT 5.93 M/uL (4.52-5.90); WHITE BLOOD CELL COUNT,WBC 9.62 K/uL (3.9-11.3)
[2023-03-07 13:40] LABS: A/G RATIO 1.2 (0.9-1.6); ALBUMIN 4.5 g/dL (3.4-5.0); BILIRUBIN TOTAL 0.8 mg/dL (0.2-1.0); CALCIUM 9.7 mg/dL (8.5-10.1); CARBON DIOXIDE,CO2 27.5 mmol/L (21.0-32.0); EST CRCL DRUG DOSING (CG) 92.26 mL/min; PROTEIN TOTAL,TP 8.3 g/dL (6.4-8.2)
[2023-03-07] MEDS ORDERED: Amiodarone 200 MG Tab PO ONE (15:05)
[2023-03-07 15:39] VITALS: BP 144/95; PULSE 86
== END 2023-03-07 15:52 | disposition home or self-care (01) ==
LOC: MW.ED 12:40
DX: T82.897A Other specified complication of cardiac prosthetic devices, implants and grafts, initial encounter (principal); I25.2 Old myocardial infarction; E03.9 Hypothyroidism, unspecified; Z79.899 Other long term (current) drug therapy
CPT/HCPCS: 36415; 71045; 80053; 84484; 85025; 93005; 96360; 96361; 99284; A9270; J7030

== ENCOUNTER 2023-03-25 10:30 | Emergency (ER) | payer MEDICARE, MEDICAID ==
[2023-03-25] MEDS ORDERED: Dexamethasone 10 MG/ML SDV IVPUSH ONE (10:43)
[2023-03-25 11:12] VITALS: BP 113/70; PULSE 68
[2023-03-25 11:28] LABS: CORONAVIRUS COVID-19 NAA NEGATIVE (NEGATIVE); INFLUENZA A NAA POSITIVE (NEGATIVE); INFLUENZA B NAA NEGATIVE (NEGATIVE); RESPIRATORY SYNCYTIAL VIR NAA NEGATIVE (NEGATIVE)
== END 2023-03-25 11:11 | disposition home or self-care (01) ==
LOC: MW.ED 10:30
DX: J02.9 Acute pharyngitis, unspecified (principal); I10 Essential (primary) hypertension; E78.00 Pure hypercholesterolemia, unspecified; E03.9 Hypothyroidism, unspecified; Z20.822 Contact with and (suspected) exposure to COVID-19; Z79.899 Other long term (current) drug therapy
CPT/HCPCS: 0241U; 87651; 96374; 99283; J1100; 99284

== ENCOUNTER 2023-05-05 22:15 | Emergency (ER) | payer MEDICARE, MEDICAID ==
[2023-05-05] MEDS: Amoxicillin 500 MG Cap PO ONE (23:00)
[2023-05-05 23:16] VITALS: BP 116/69; PULSE 72
== END 2023-05-05 23:15 | disposition home or self-care (01) ==
LOC: MW.ED 22:15
DX: K04.7 Periapical abscess without sinus (principal); I10 Essential (primary) hypertension; E78.00 Pure hypercholesterolemia, unspecified; E03.9 Hypothyroidism, unspecified; Z95.0 Presence of cardiac pacemaker; Z79.899 Other long term (current) drug therapy
CPT/HCPCS: 99283; A9270

== ENCOUNTER 2023-09-14 14:26 | Emergency (ER) | payer MEDICAID, MEDICARE ==
[2023-09-14] MEDS ORDERED: Sodium Chloride 0.9% 10 ML Syringe FLUSH PRN (14:31)
[2023-09-14] MEDS ORDERED: Sodium Chloride 0.9% 2.5 ML Syringe FLUSH PRN (14:31)
[2023-09-14] MEDS: Albuterol/Ipratropium 3.0-0.5 MG/3 ML Neb Soln NEB ONE (14:58)
[2023-09-14 15:05] LABS: EOSINOPHILS ABSOLUTE AUTO 0.03 K/uL (0.00-0.45); EOSINOPHILS PERCENT AUTO 0.4 % (0.0-6.0); HEMATOCRIT 47.9 % (42.0-52.0); HEMOGLOBIN 17.4 g/dL (14.0-18.0); IMMATURE GRAN ABSOLUTE AUTO 0.01 K/uL (0.00-0.05); IMMATURE GRAN PERCENT AUTO 0.1 % (0.0-0.4); LYMPHOCYTES ABSOLUTE AUTO 1.88 K/uL (1.00-4.80); LYMPHOCYTES PERCENT AUTO 27.1 % (24.0-44.0); MEAN CORPUSCULAR HEMOGLOBIN 32.2 pg (28.0-32.0); MEAN CORPUSCULAR HGB CONC 36.3 g/dL (32.0-36.0); MEAN CORPUSCULAR VOLUME 88.7 fL (83.0-99.0); MEAN PLATELET VOLUME 9.5 fL (9.4-12.4); MONOCYTES ABSOLUTE AUTO 0.48 K/uL (0.00-0.80); MONOCYTES PERCENT AUTO 6.9 % (0.0-8.0); NEUTROPHILS ABSOLUTE AUTO 4.54 K/uL (1.80-7.70); NEUTROPHILS PERCENT AUTO 65.5 % (41.0-71.0); PLATELET COUNT,PLT 179 K/uL (150-400); WHITE BLOOD CELL COUNT,WBC 6.94 K/uL (3.9-11.3)
[2023-09-14] MEDS: Famotidine 20 MG/2 ML SDV IVPUSH ONE (15:19)
[2023-09-14 15:35] LABS: A/G RATIO 1.4 (0.9-1.6); ALBUMIN 4.2 g/dL (3.4-5.0); BILIRUBIN TOTAL 0.6 mg/dL (0.2-1.0); CALCIUM 8.6 mg/dL (8.5-10.1); CARBON DIOXIDE,CO2 27.4 mmol/L (21.0-32.0); CREATININE 1.1 mg/dL (0.8-1.3); EST CRCL DRUG DOSING (CG) 83.88 mL/min; POTASSIUM,K 3.9 mmol/L (3.5-5.1); PROTEIN TOTAL,TP 7.3 g/dL (6.4-8.2)
[2023-09-14 18:39] VITALS: BP 139/92; PULSE 51
== END 2023-09-14 18:43 | disposition home or self-care (01) ==
LOC: MW.ED 14:26
DX: R07.89 Other chest pain (principal); R06.02 Shortness of breath; I25.10 Atherosclerotic heart disease of native coronary artery without angina pectoris; I10 Essential (primary) hypertension; E03.9 Hypothyroidism, unspecified; E78.00 Pure hypercholesterolemia, unspecified; Z95.810 Presence of automatic (implantable) cardiac defibrillator; Z79.899 Other long term (current) drug therapy; Z79.890 Hormone replacement therapy
CPT/HCPCS: 36415; 71045; 71045-26; 80053; 83690; 84484; 85025; 93005; 93010; 96374; 99284; 99285-25; J3490; J7620-GY

== ENCOUNTER 2023-10-13 08:45 | Day surgery (SDC) | payer MEDICAID, MEDICARE ==
[2023-10-13] MEDS: Lactated Ringers 1,000 ML IV SCH (09:22)
[2023-10-13] MEDS ORDERED: Lidocaine 2% 5 ML SDV ONE ×2 (10:04→11:54)
[2023-10-13] MEDS ORDERED: propofoL 50 ML ONE (10:04)
[2023-10-13] MEDS ORDERED: Lactated Ringers 1,000 ML IV SCH (12:45)
[2023-10-13 12:59] VITALS: BP 160/79; PULSE 84
== END 2023-10-13 13:02 | disposition home or self-care (01) ==
LOC: MW.SDS 08:45
PROVIDERS: ATTEND Surgery
DX: Z12.11 Encounter for screening for malignant neoplasm of colon (principal); R19.5 Other fecal abnormalities; I11.0 Hypertensive heart disease with heart failure; I50.9 Heart failure, unspecified; I25.10 Atherosclerotic heart disease of native coronary artery without angina pectoris; I48.91 Unspecified atrial fibrillation; I42.9 Cardiomyopathy, unspecified; E78.00 Pure hypercholesterolemia, unspecified; E03.9 Hypothyroidism, unspecified; F17.210 Nicotine dependence, cigarettes, uncomplicated; Z79.890 Hormone replacement therapy; Z79.82 Long term (current) use of aspirin; Z79.01 Long term (current) use of anticoagulants; Z79.899 Other long term (current) drug therapy
CPT/HCPCS: G0121; J2704; J7120; 45378; J3490